=== PATIENT | male | born 1980 | race Caucasian/White ===

== ENCOUNTER 2019-08-13 08:34 | Emergency (ER) | payer BC, OTHER ==
[2019-08-13] MEDS ORDERED: SODIUM CHLORIDE 0.9% 1,000 ML IV STA (08:58)
[2019-08-13] MEDS ORDERED: IPRATROPIUM-ALBUTEROL 3 ML NEB INHALATION STA (08:58)
[2019-08-13] MEDS ORDERED: KETOROLAC 30 MG/ML 1 ML VIAL IVP STA (08:58)
--- NOTE | 2019-08-13 09:02 | ED ---
URI HPI - General Chief Complaint: Upper Respiratory Infection Stated Complaint: pneumonia Time Seen by Provider: 08/13/19 08:35 Source: patient Mode of arrival: ambulatory - History of Present Illness Initial Comments: The patient is a 38-year-old male with no past medical history of presents emergency Department with reported cough and low back pain. The patient went into [facility] yesterday for the same complaint. He describes an aching burning sensation which spans across his lumbar region. He denies any trauma. Denies any provocative factors. He took indomethacin at home for pain control which she has been prescribed for other reasons. Denies a history of low back pain. The pain, numbness or tingling into his lower extremities. Because his symptoms persisted he went into the emergency department. At time he had laboratory studies, a chest x-ray and a CT of his abdomen and pelvis performed. He was diagnosed with pneumonia. He does her Rocephin was discharged home. States he is placed on Ceftin however can potato picker his prescription because the pharmacy was closed. States that he was feeling worse overnight and was told to come back if his symptoms worsened. He denies any chest pain. Does admit to shortness of breath. No anterior abdominal pain. No changes in his bowel or bladder habits. There are no other alleviating, precip itating or modifying factors - Related Data Previous Rx's Medication Instructions Recorded HYDROcodone/APAP 7.5-325MG [[place] 1 each PO Q4H PRN #60 tab 06/09/16 7.5] predniSONE [Deltasone] 20 mg PO BID #10 tab 08/13/19 Allergies Allergy/AdvReac Type Severity Reaction Status Date / Time No Known Allergies Allergy Verified 08/13/19 08:39 Review of Systems ROS Statement: Those systems with pertinent positive or pertinent negative responses have been documented in the HPI. ROS Other: All systems not noted in ROS Statement are negative. Past Medical History Additional Past Medical History / Comment(s): umbilical hernia History of Any Multi-Drug Resistant Organisms: None Reported Past Surgical History: Orthopedic Surgery Additional Past Surgical History / Comment(s): lt ankle cyst removed Past Anesthesia/Blood Transfusion Reactions: No Reported Reaction Past Psychological History: No Psychological Hx Reported Smoking Status: Current some day smoker Past Alcohol Use History: Occasional Past Drug Use History: Marijuana - Past Family History Mother Family Medical History: No Reported History Father History Unknown: Yes Course Vital Signs 08/13/19 08/13/19 08/13/19 08:35 09:11 09:13 Temperature 98.2 F Pulse Rate 93 83 Respiratory 18 Rate Blood Pressure 136/95 O2 Sat by Pulse 94 L 92 L Oximetry 08/13/19 08/13/19 08/13/19 09:20 09:22 09:32 Temperature Pulse Rate 79 87 Respiratory 18 18 Rate Blood Pressure 101/78 O2 Sat by Pulse 96 Oximetry 08/13/19 08/13/19 08/13/19 09:40 10:00 10:20 Temperature Pulse Rate 80 79 73 Respiratory 16 16 16 Rate Blood Pressure 139/86 O2 Sat by Pulse 92 L 96 96 Oximetry 08/13/19 10:54 Temperature 98.9 F Pulse Rate 72 Respiratory 16 Rate Blood Pressure 128/75 O2 Sat by Pulse 98 Oximetry Medical Decision Making - Medical Decision Making Upon arrival the patient was placed into room 2. A thorough history and physical exam was performed. I did obtain the records from [facility]. I did recommend repeating the patient's laboratory studies. CBC is unremarkable. D-dimer is 0.25. Sodium mildly low at 135. Urinalysis shows small blood, 8 red blood cells and rare mucous. I did review the patient's CT that was performed yesterday which demonstrated no signs of nephrolithiasis. He does demonstrate a lobar pneumonia. I did recommend repeating a chest x-ray. It does demonstrate no active intrathoracic disease. I did provide the patient with 15 mg of Toradol and a liter bolus of normal saline. He is also given 125 mg of Solu-Medrol, 1 g of Rocephin and a DuoNeb breathing treatment. I reevaluated the patient and he feels comfortable at this time. He'll be discharged home. Instructed to take the Ceftin as directed and use the inhaler which was prescribed to him yesterday. I also added on a steroid pack. He is always a primary care physician in 2-4 days. Return to emergency for any new or worsening symptoms her patient was in agreement treatment plan discharge home in stable condition - Lab Data Result diagrams: 08/13/19 09:19 08/13/19 09:19 Lab Results 08/13/19 08/13/19 08/13/19 Range/Units 09:19 09:19 09:19 WBC 7.6 (3.8-10.6) k/uL RBC 4.97 (4.30-5.90) m/uL Hgb 15.4 (13.0-17.5) gm/dL Hct 45.4 (39.0-53.0) % MCV 91.5 (80.0-100.0) fL MCH 30.9 (25.0-35.0) pg MCHC 33.8 (31.0-37.0) g/dL RDW 12.5 (11.5-15.5) % Plt Count 189 (150-450) k/uL Neutrophils % (Manual) 67 % Band Neutrophils % 1 % Lymphocytes % (Manual) 21 % Monocytes % (Manual) 11 % Neutrophils # (Manual) 5.10 (1.3-7.7) k/uL Lymphocytes # (Manual) 1.60 (1.0-4.8) k/uL Monocytes # (Manual) 0.84 (0-1.0) k/uL Nucleated RBCs 0 (0-0) /100 WBC Manual Slide Review Performed D-Dimer 0.25 (<0.60) mg/L FEU Sodium 135 L (137-145) mmol/L Potassium 4.5 (3.5-5.1) mmol/L Chloride 103 (98-107) mmol/L Carbon Dioxide 22 (22-30) mmol/L Anion Gap 10 mmol/L BUN 16 (9-20) mg/dL Creatinine 0.99 (0.66-1.25) mg/dL Est GFR (CKD-EPI)AfAm >90 (>60 ml/min/1.73 sqM) Est GFR (CKD-EPI)NonAf >90 (>60 ml/min/1.73 sqM) Glucose 103 H (74-99) mg/dL Plasma Lactic Acid Samuel (0.7-2.0) mmol/L Calcium 9.0 (8.4-10.2) mg/dL Total Bilirubin 0.6 (0.2-1.3) mg/dL AST 30 (17-59) U/L ALT 29 (4-49) U/L Alkaline Phosphatase 41 (38-126) U/L Total Protein 7.4 (6.3-8.2) g/dL Albumin 4.2 (3.5-5.0) g/dL Urine Color Urine Appearance (Clear) Urine pH (5.0-8.0) Ur Specific [place] (1.001-1.035) Urine Protein (Negative) Urine Glucose (UA) (Negative) Urine Ketones (Negative) Urine Blood (Negative) Urine Nitrite (Negative) Urine Bilirubin (Negative) Urine Urobilinogen (<2.0) mg/dL Ur Leukocyte Esterase (Negative) Urine RBC (0-5) /hpf Urine Mucus (None) /hpf 08/13/19 08/13/19 Range/Units 09:19 09:19 WBC (3.8-10.6) k/uL RBC (4.30-5.90) m/uL Hgb (13.0-17.5) gm/dL Hct (39.0-53.0) % MCV (80.0-100.0) fL MCH (25.0-35.0) pg MCHC (31.0-37.0) g/dL RDW (11.5-15.5) % Plt Count (150-450) k/uL Neutrophils % (Manual) % Band Neutrophils % % Lymphocytes % (Manual) % Monocytes % (Manual) % Neutrophils # (Manual) (1.3-7.7) k/uL Lymphocytes # (Manual) (1.0-4.8) k/uL Monocytes # (Manual) (0-1.0) k/uL Nucleated RBCs (0-0) /100 WBC Manual Slide Review D-Dimer (<0.60) mg/L FEU Sodium (137-145) mmol/L Potassium (3.5-5.1) mmol/L Chloride (98-107) mmol/L Carbon Dioxide (22-30) mmol/L Anion Gap mmol/L BUN (9-20) mg/dL Creatinine (0.66-1.25) mg/dL Est GFR (CKD-EPI)AfAm (>60 ml/min/1.73 sqM) Est GFR (CKD-EPI)NonAf (>60 ml/min/1.73 sqM) Glucose (74-99) mg/dL Plasma Lactic Acid Samuel 0.8 (0.7-2.0) mmol/L Calcium (8.4-10.2) mg/dL Total Bilirubin (0.2-1.3) mg/dL AST (17-59) U/L ALT (4-49) U/L Alkaline Phosphatase (38-126) U/L Total Protein (6.3-8.2) g/dL Albumin (3.5-5.0) g/dL Urine Color Yellow Urine Appearance Clear (Clear) Urine pH 6.0 (5.0-8.0) Ur Specific [place] 1.023 (1.001-1.035) Urine Protein Negative (Negative) Urine Glucose (UA) Negative (Negative) Urine Ketones Negative (Negative) Urine Blood Small H (Negative) Urine Nitrite Negative (Negative) Urine Bilirubin Negative (Negative) Urine Urobilinogen <2.0 (<2.0) mg/dL Ur Leukocyte Esterase Negative (Negative) Urine RBC 8 H (0-5) /hpf Urine Mucus Rare H (None) /hpf - EKG Data EKG Comments: EKG shows a normal sinus rhythm with ventricular rate of 81. HI interval 128. QRS 86. QTC 425. No acute ST segment elevations or depressions concerning for ischemic changes Disposition Clinical Impression: Cough, Low back pain, Pneumonia Disposition: HOME SELF-CARE Condition: Stable Instructions (If sedation given, give patient instructions): Upper Respiratory Infection (ED) Additional Instructions: Please follow up with your primary care doctor in 2-4 days. Return to the emergency room for any new or worsening symptoms Prescriptions: predniSONE [Deltasone] 20 mg PO BID #10 tab Is patient prescribed a controlled substance at d/c from ED?: No Referrals: Colt Spicer MD [Primary Care Provider] - 1-2 days Time of Disposition: 10:44
[2019-08-13 09:36] LABS: ALT 29 U/L (4-49); AST 30 U/L (17-59); African American GFR (CKD) >90 (>60 ml/min/1.73 sqM); Albumin 4.2 g/dL (3.5-5.0); Alkaline Phosphatase 41 U/L (38-126); Anion Gap 10 mmol/L; Blood Urea Nitrogen 16 mg/dL (9-20); Carbon Dioxide 22 mmol/L (22-30); Chloride 103 mmol/L (98-107); Glucose 103 mg/dL (74-99); HCT 45.4 % (39.0-53.0); HGB 15.4 gm/dL (13.0-17.5); MCH 30.9 pg (25.0-35.0); MCHC 33.8 g/dL (31.0-37.0); MCV 91.5 fL (80.0-100.0); Mean Platelet Volume 7.6; Non-African American GFR(CKD) >90 (>60 ml/min/1.73 sqM); Platelet Count 189 k/uL (150-450); Potassium 4.5 mmol/L (3.5-5.1); RBC 4.97 m/uL (4.30-5.90); RDW 12.5 % (11.5-15.5); Sodium 135 mmol/L (137-145); Total Bilirubin 0.6 mg/dL (0.2-1.3); Total Protein 7.4 g/dL (6.3-8.2); WBC 7.6 k/uL (3.8-10.6)
[2019-08-13 09:41] LABS: Appearance,Urine Clear (Clear); Bilirubin,Urine Negative (Negative); Blood,Urine Small (Negative); Color,Urine Yellow; Glucose,Urine (UA) Negative (Negative); Ketones,Urine Negative (Negative); Leukocyte Esterase,Urine Negative (Negative); Mucus,Urine Rare /hpf; Nitrite,Urine Negative (Negative); Protein,Urine Negative (Negative); RBC,Urine 8 /hpf (0-5); Specific Gravity,Urine 1.023 (1.001-1.035); Urobilinogen,Urine <2.0 mg/dL (<2.0)
[2019-08-13 09:48] LABS: Band Neutrophils % 1 %; Monocytes # (M) 0.84 k/uL (0-1.0); Neutrophils % (M) 67 %; Nucleated Red Blood Cells 0 /100 WBC (0-0); Total Cells Counted 100
--- NOTE | 2019-08-13 10:13 | XR ---
EXAMINATION TYPE: XR chest 2V DATE OF EXAM: 08/13/2019 HISTORY: cough. REFERENCE: NONE. FINDINGS: There is apparent elevation right hemidiaphragm. The lungs are clear. Pleural spaces are clear. The heart is not enlarged. IMPRESSION: NO ACTIVE INTRATHORACIC DISEASE.
[2019-08-13 10:27] VITALS: RESP 16
[2019-08-13] MEDS ORDERED: cefTRIAXone IN SWFI 1,000 MG/10 ML SYRINGE IVP STA (10:40)
[2019-08-13] MEDS ORDERED: methylPREDNISolone SOD SUCCI 125 MG/2 ML VIAL IV STA (10:40)
[2019-08-13 10:54] VITALS: BP 128/75; PULSE 72; TEMP 98.9
== END 2019-08-13 10:55 | disposition home or self-care (01) ==
LOC: EC 08:34
DX: J18.9 Pneumonia, unspecified organism (principal); M54.5 Low back pain; F17.200 Nicotine dependence, unspecified, uncomplicated
CPT/HCPCS: 36415; 94640; 93005; 85379; 80053; 83605; 85025; 81001; 71046; 99284; 96374; 96375 ×2; 96361; J2930; J0696; J1885

== ENCOUNTER 2019-08-17 10:28 | Observation (INO) | payer OTHER ==
[2019-08-17] MEDS ORDERED: methylPREDNISolone SOD SUCCI 125 MG/2 ML VIAL IV STA (11:03)
[2019-08-17] MEDS ORDERED: IPRATROPIUM-ALBUTEROL 3 ML NEB INHALATION STA (11:03)
--- NOTE | 2019-08-17 11:25 | XR ---
EXAMINATION TYPE: XR chest 2V DATE OF EXAM: 08/17/2019 COMPARISON: 08/13/2019 HISTORY: Cough TECHNIQUE: Frontal and lateral views of the chest are obtained. FINDINGS: Hypoventilatory lungs exaggerate the pulmonary vasculature. There is no focal air space [place], pleural effusion, or pneumothorax seen. Similar slight right hemidiaphragm elevation. The cardi ac silhouette size is within normal limits. The osseous structures are intact. IMPRESSION: No acute cardiopulmonary process.
[2019-08-17 11:28] LABS: Basophils # (A) 0.1 k/uL (0-0.2); Basophils % (A) 1 %; Eosinophils % (A) 0 %; HGB 15.8 gm/dL (13.0-17.5); Lymphocytes # (A) 1.4 k/uL (1.0-4.8); Lymphocytes % (A) 12 %; MCH 30.2 pg (25.0-35.0); MCHC 32.9 g/dL (31.0-37.0); MCV 91.9 fL (80.0-100.0); Mean Platelet Volume 7.7; Monocytes # (A) 0.4 k/uL (0-1.0); Monocytes % (A) 3 %; Neutrophils # (A) 9.7 k/uL (1.3-7.7); Neutrophils % (A) 83 %; Platelet Count 226 k/uL (150-450); RBC 5.22 m/uL (4.30-5.90); RDW 12.6 % (11.5-15.5); WBC 11.8 k/uL (3.8-10.6)
[2019-08-17 11:29] LABS: ALT 22 U/L (4-49); AST 22 U/L (17-59); African American GFR (CKD) >90 (>60 ml/min/1.73 sqM); Albumin 4.4 g/dL (3.5-5.0); Alkaline Phosphatase 44 U/L (38-126); Anion Gap 12 mmol/L; Blood Urea Nitrogen 16 mg/dL (9-20); Calcium 9.4 mg/dL (8.4-10.2); Carbon Dioxide 24 mmol/L (22-30); Chloride 103 mmol/L (98-107); Glucose 156 mg/dL (74-99); Magnesium 2.1 mg/dL (1.6-2.3); Non-African American GFR(CKD) >90 (>60 ml/min/1.73 sqM); Sodium 139 mmol/L (137-145); Total Bilirubin 0.5 mg/dL (0.2-1.3); Total Protein 7.6 g/dL (6.3-8.2)
[2019-08-17 11:33] LABS: Potassium 4.3 mmol/L (3.5-5.1)
--- NOTE | 2019-08-17 11:50 | ED ---
SOB HPI - General Chief Complaint: Shortness of Breath Stated Complaint: Pneumonia Time Seen by Provider: 08/17/19 10:39 Source: patient, RN notes reviewed Mode of arrival: ambulatory Limitations: no limitations - History of Present Illness Initial Comments: This a 38-year-old male presents emergency Department with chief complaint of fever cough congestion. Patient is seen at [facility] on Wednesday a CT which showed evidence of pneumonia. Patient was placed on antibiotics, breathing treatments. Symptoms worsen he was seen in this ER and had additional labs, imaging ordered. Patient was discharged with steroids. He states he's pe rsistently worsened recently increased shortness breath, wheezing. He states it's on alleviated with his breathing treatments he does admit that he is a daily smoker history of asthma. Patient denies any current chest pain, nausea, vomiting, diarrhea constipation no sick contacts. - Related Data Home Medications Medication Instructions Recorded Confirmed Albuterol Nebulized [Ventolin 2.5 mg INHALATION RT-Q6H PRN 08/17/19 08/17/19 Nebulized] Albuterol Sulfate [Proair Hfa] 2 puff INHALATION RT-Q6H PRN 08/17/19 08/17/19 Cefuroxime Axetil [Ceftin] 500 mg PO BID 08/17/19 08/17/19 Ibuprofen [Motrin] 600 mg PO TID PRN 08/17/19 08/17/19 Previous Rx's Medication Instructions Recorded predniSONE [Deltasone] 20 mg PO BID #10 tab 08/13/19 Allergies Allergy/AdvReac Type Severity Reaction Status Date / Time No Known Allergies Allergy Verified 08/17/19 11:20 Review of Systems ROS Statement: Those systems with pertinent positive or pertinent negative responses have been documented in the HPI. ROS Other: All systems not noted in ROS Statement are negative. Past Medical History Past Medical History: Pneumonia Additional Past Medical History / Comment(s): umbilical hernia History of Any Multi-Drug Resistant Organisms: None Reported Past Surgical History: Orthopedic Surgery Additional Past Surgical History / Comment(s): lt ankle cyst removed Past Anesthesia/Blood Transfusion Reactions: No Reported Reaction Past Psychological History: No Psychological Hx Reported Smoking Status: Current some day smoker Past Alcohol Use History: Occasional Past Drug Use History: Marijuana - Past Family History Mother Family Medical History: No Reported History Father History Unknown: Yes General Exam Limitations: no limitations General appearance: alert, in no apparent distress Head exam: Present: atraumatic, normocephalic, normal inspection Eye exam: Present: normal appearance, PERRL, EOMI. Absent: scleral icterus, conjunctival injection, periorbital swelling ENT exam: Present: normal exam, normal oropharynx, mucous membranes moist Neck exam: Present: normal inspection, full ROM. Absent: tenderness, meningismus, lymphadenopathy Respiratory exam: Present: wheezes. Absent: normal lung sounds bilaterally, respiratory distress, rales, rhonchi, stridor Cardiovascular Exam: Present: regular rate, normal rhythm, normal heart sounds. Absent: systolic murmur, diastolic murmur, rubs, gallop, clicks GI/Abdominal exam: Present: soft, normal bowel sounds. Absent: distended, tenderness, guarding, rebound, rigid Course Vital Signs 08/17/19 08/17/19 08/17/19 10:34 11:21 11:36 Temperature 97.4 F L Pulse Rate 105 H 93 90 Respiratory 18 16 16 Rate Blood Pressure 128/81 O2 Sat by Pulse 97 Oximetry 08/17/19 12:53 Temperature Pulse Rate 77 Respiratory 18 Rate Blood Pressure 140/90 O2 Sat by Pulse 97 Oximetry Medical Decision Making - Lab Data Result diagrams: 08/17/19 11:15 08/17/19 11:15 Lab Results 08/17/19 08/17/19 08/17/19 Range/Units 11:15 11:15 11:15 WBC 11.8 H (3.8-10.6) k/uL RBC 5.22 (4.30-5.90) m/uL Hgb 15.8 (13.0-17.5) gm/dL Hct 48.0 (39.0-53.0) % MCV 91.9 (80.0-100.0) fL MCH 30.2 (25.0-35.0) pg MCHC 32.9 (31.0-37.0) g/dL RDW 12.6 (11.5-15.5) % Plt Count 226 (150-450) k/uL Neutrophils % 83 % Lymphocytes % 12 % Monocytes % 3 % Eosinophils % 0 % Basophils % 1 % Neutrophils # 9.7 H (1.3-7.7) k/uL Lymphocytes # 1.4 (1.0-4.8) k/uL Monocytes # 0.4 (0-1.0) k/uL Eosinophils # 0.0 (0-0.7) k/uL Basophils # 0.1 (0-0.2) k/uL Sodium 139 (137-145) mmol/L Potassium 4.3 (3.5-5.1) mmol/L Chloride 103 (98-107) mmol/L Carbon Dioxide 24 (22-30) mmol/L Anion Gap 12 mmol/L BUN 16 (9-20) mg/dL Creatinine 0.79 (0.66-1.25) mg/dL Est GFR (CKD-EPI)AfAm >90 (>60 ml/min/1.73 sqM) Est GFR (CKD-EPI)NonAf >90 (>60 ml/min/1.73 sqM) Glucose 156 H (74-99) mg/dL Plasma Lactic Acid Samuel 2.6 H* (0.7-2.0) mmol/L Calcium 9.4 (8.4-10.2) mg/dL Magnesium 2.1 (1.6-2.3) mg/dL Total Bilirubin 0.5 (0.2-1.3) mg/dL AST 22 (17-59) U/L ALT 22 (4-49) U/L Alkaline Phosphatase 44 (38-126) U/L NT-Pro-B Natriuret Pep pg/mL Total Protein 7.6 (6.3-8.2) g/dL Albumin 4.4 (3.5-5.0) g/dL 08/17/19 Range/Units 11:15 WBC (3.8-10.6) k/uL RBC (4.30-5.90) m/uL Hgb (13.0-17.5) gm/dL Hct (39.0-53.0) % MCV (80.0-100.0) fL MCH (25.0-35.0) pg MCHC (31.0-37.0) g/dL RDW (11.5-15.5) % Plt Count (150-450) k/uL Neutrophils % % Lymphocytes % % Monocytes % % Eosinophils % % Basophils % % Neutrophils # (1.3-7.7) k/uL Lymphocytes # (1.0-4.8) k/uL Monocytes # (0-1.0) k/uL Eosinophils # (0-0.7) k/uL Basophils # (0-0.2) k/uL Sodium (137-145) mmol/L Potassium (3.5-5.1) mmol/L Chloride (98-107) mmol/L Carbon Dioxide (22-30) mmol/L Anion Gap mmol/L BUN (9-20) mg/dL Creatinine (0.66-1.25) mg/dL Est GFR (CKD-EPI)AfAm (>60 ml/min/1.73 sqM) Est GFR (CKD-EPI)NonAf (>60 ml/min/1.73 sqM) Glucose (74-99) mg/dL Plasma Lactic Acid Samuel (0.7-2.0) mmol/L Calcium (8.4-10.2) mg/dL Magnesium (1.6-2.3) mg/dL Total Bilirubin (0.2-1.3) mg/dL AST (17-59) U/L ALT (4-49) U/L Alkaline Phosphatase (38-126) U/L NT-Pro-B Natriuret Pep 23 pg/mL Total Protein (6.3-8.2) g/dL Albumin (3.5-5.0) g/dL Disposition Clinical Impression: Asthma exacerbation, Pneumonia Disposition: ADMITTED IP TO THIS HOSP Condition: Fair Referrals: Colt Spicer MD [Primary Care Provider] - 1-2 days
[2019-08-17] MEDS ORDERED: AZITHROMYCIN 500 MG in SODIUM CHLORIDE 0.9% 250 ML IVPB STA (12:56)
[2019-08-17] MEDS ORDERED: PNEUMONIA PROTOCOL UTILIZED 1 EACH MISC PO PRN (12:56)
[2019-08-17] MEDS ORDERED: NICOTINE 21MG/24HR PATCH TRANSDERM STA (13:32)
[2019-08-17] MEDS ORDERED: INFLUENZA VACCINE (6 MOS+) 60 MCG/0.5 ML SYRINGE IM ONE (13:52)
[2019-08-17] MEDS ORDERED: IPRATROPIUM-ALBUTEROL 3 ML NEB INHALATION SCH (16:00)
[2019-08-17] MEDS ORDERED: IPRATROPIUM-ALBUTEROL 3 ML NEB INHALATION PRN (16:03)
[2019-08-17] MEDS: methylPREDNISolone SOD SUCCI 40 MG/ML 1 ML VIAL IV SCH (17:07)
[2019-08-17] MEDS: BUDESONIDE 0.5 MG/2 ML NEBU INHALATION SCH (20:26)
[2019-08-17] MEDS: IPRATROPIUM-ALBUTEROL 3 ML NEB INHALATION SCH (20:26)
--- NOTE | 2019-08-17 20:49 | HP ---
HISTORY AND PHYSICAL CHIEF COMPLAINT: Difficulty breathing. HISTORY OF PRESENT ILLNESS: This is the first admission for this 38-year-old white male. 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 He has had a little bit of difficulty with asthma, for which he uses an albuterol MDI occasionally. At times his work is wu. He has been fairly short of breath and coughing quite a bit with a low-grade fever and chills over the last several days. He went to [facility], where they diagnosed him as having pneumonia. He apparently had a CT. Chest x-ray here is normal. He came to the emergency room with difficulty breathing and wheezing and was admitted for control of his bronchospasm. He is other otherwise healthy. REVIEW OF SYSTEMS: He has had no headaches, neurologic problems, difficulty with the vision or the hearing, chest pain, hemoptysis, purulent sputum production, heart disease, hypertension, murmurs, rheumatic fever, chest pain, abdominal pain, nausea, vomiting, melena, hematochezia, colitis, diverticulosis, diverticulitis, hemorrhoids, jaundice, hepatitis, cirrhosis, renal failure, dysuria, nocturia, incontinence, etc. He has been told that he has blood in the urine. He had a relative of bladder cancer. He has not had diabetes. Past medical history, family history, and personal and social histories reveal that he takes Motrin 600 mg for his back and uses an MDI. He has had a vasectomy and no other surgery. He is NOT ALLERGIC TO ANY MEDICATION. He does smoke about 2 packs a day and has done so since he was 16 years old. PHYSICAL EXAMINATION: Temperature 97.4, blood pressure 128/81 with a pulse of 77, respirations 18. In general he appeared to be well developed, well nourished, in no acute distress. Skin color is normal. Skin is warm and dry. Lymph nodes are not enlarged. Head, ears, eyes, nose, mouth and throat are normal. Neck veins are not distended. Thyroid is not enlarged. Chest demonstrated some inspiratory and expiratory wheezing with occasional rhonchi. Cardiac exam demonstrated sinus rhythm and no murmurs or extra sounds. Abdomen is soft, nontender. Extremities are normal. Neurologically he is intact. IMPRESSION: 1. Asthmatic bronchitis. 2. Possible pneumonia. 3. History of testing positive for influenza. PLAN: 1. Bed rest. 2. IV fluids. 3. Antibiotics. 4. Updrafts. 5. IV and inhaled steroids. Probably home in one day. MMODL / IJN: [id number] /
[2019-08-17] MEDS: AMOXIC-POT CLAV 875-125MG 1 EACH TAB PO SCH (21:24)
[2019-08-17] MEDS: IBUPROFEN 600 MG TAB PO PRN (21:25)
--- NOTE | 2019-08-17 22:40 | XR ---
EXAMINATION TYPE: XR KUB DATE OF EXAM: 08/17/2019 COMPARISON: NONE HISTORY: Hematuria TECHNIQUE: 2 views supine FINDINGS: There is no sign of intestinal obstruction or pneumoperitoneum. Fecal pattern is normal. Vibha ng bases are clear. There are no pathologic calcifications. IMPRESSION: Nonacute abdomen.
[2019-08-18] MEDS: IPRATROPIUM-ALBUTEROL 3 ML NEB INHALATION SCH ×7 (00:04→23:31)
[2019-08-18] MEDS: methylPREDNISolone SOD SUCCI 40 MG/ML 1 ML VIAL IV SCH ×3 (00:13→15:43)
[2019-08-18] MEDS: AMOXIC-POT CLAV 875-125MG 1 EACH TAB PO SCH ×2 (06:49→21:46)
[2019-08-18 06:55] LABS: Appearance,Urine Clear (Clear); Bilirubin,Urine Negative (Negative); Blood,Urine Negative (Negative); Color,Urine Light Yellow; Glucose,Urine (UA) 3+ (Negative); Ketones,Urine Negative (Negative); Leukocyte Esterase,Urine Negative (Negative); Nitrite,Urine Negative (Negative); Protein,Urine Negative (Negative); Specific Gravity,Urine 1.008 (1.001-1.035); Urobilinogen,Urine <2.0 mg/dL (<2.0)
--- NOTE | 2019-08-18 07:59 | XR ---
EXAMINATION TYPE: XR chest 2V DATE OF EXAM: 08/18/2019 COMPARISON: 08/17/2019 HISTORY: Follow-up for pneumonia TECHNIQUE: Frontal and lateral views of the chest are obtained. FINDINGS: Hypoventilatory lungs. Crowding of the pulmonary vasculature and accentuating interstitium. There is no focal air space opacity, pleural effusion, or pneumothorax seen. The cardiac silhouett e size is within normal limits. The osseous structures are intact. IMPRESSION: Accentuated interstitium is likely related to hypoventilatory status. Alternatively atyp ical pneumonia is possible in the appropriate clinical setting.
[2019-08-18] MEDS: BUDESONIDE 0.5 MG/2 ML NEBU INHALATION SCH ×2 (08:31→19:21)
[2019-08-18] MEDS: IBUPROFEN 600 MG TAB PO PRN ×2 (10:32→20:52)
[2019-08-18] MEDS: NICOTINE 21MG/24HR PATCH TRANSDERM SCH (10:39)
--- NOTE | 2019-08-18 14:58 | PN ---
PROGRESS NOTE CHIEF COMPLAINT: Status asthmaticus. HISTORY OF PRESENT ILLNESS: This gentleman is still quite tight and quite wheezy. He has had no fever, chills, cough, sputum duction, etc. PHYSICAL EXAMINATION: He still has inspiratory and expiratory wheezing with a slightly increased expiratory time. Cardiac exam is normal. Abdomen is soft, nontender. IMPRESSION: 1. Status asthmaticus. 2. Bronchitis. 3. Bronchial pneumonia. PLAN: Continue with current treatment until his bronchospasm is broken. MMODL / IJN: [id number] /
[2019-08-19] MEDS: methylPREDNISolone SOD SUCCI 40 MG/ML 1 ML VIAL IV SCH ×2 (00:06→08:13)
[2019-08-19] MEDS: IPRATROPIUM-ALBUTEROL 3 ML NEB INHALATION SCH ×2 (05:16→08:49)
[2019-08-19 05:55] VITALS: BP 138/75; RESP 20; TEMP 98.1
[2019-08-19] MEDS ORDERED: INFLUENZA VACCINE (6 MOS+) 60 MCG/0.5 ML SYRINGE IM ONE (08:12)
[2019-08-19] MEDS: NICOTINE 21MG/24HR PATCH TRANSDERM SCH (08:13)
[2019-08-19] MEDS: AMOXIC-POT CLAV 875-125MG 1 EACH TAB PO SCH (08:13)
[2019-08-19] MEDS: BUDESONIDE 0.5 MG/2 ML NEBU INHALATION SCH (08:49)
[2019-08-19 09:08] VITALS: PULSE 94
--- NOTE | 2019-08-20 06:35 | DS ---
DISCHARGE SUMMARY CHIEF COMPLAINT: Fever, chills, difficulty breathing. HISTORY OF PRESENT ILLNESS AND PHYSICAL EXAMINATION: Details of this man's history and physical can be found in the initial workup. LABORATORY STUDIES: While he was in the hospital, he had laboratory studies, details of which can be found laboratory section of his chart. COURSE IN HOSPITAL: After admission, he was placed on bedrest, started on intravenous fluids, antibiotics and IV and inhaled steroids. He remained quite wheezy, congested and tight for several days, but then started to improve and he was doing well enough on the . It was felt that he could go home. He will go home on a Medrol Dosepak and usual medications that he has at home. He will follow up in the office in several days. FINAL DIAGNOSES: 1. Bilateral bronchopneumonia. 2. Status asthmaticus. OPERATIONS: None. CONSULTATION: None. He is improved. MMODL / CARO: [id number] /
[2019-08-20] MEDS ORDERED: methylPREDNISolone 4 MG TAB TAPER PO SCH (09:00)
== END 2019-08-19 11:56 | disposition home or self-care (01) ==
LOC: EC 10:28 → 6NMEDSUR 13:28 → INTOOBSV 13:28 → UNDODISIN 08-19 11:56
PROVIDERS: ADMIT Family Medicine; ATTEND Family Medicine
DX: J18.0 Bronchopneumonia, unspecified organism (principal); J45.902 Unspecified asthma with status asthmaticus; F17.210 Nicotine dependence, cigarettes, uncomplicated; Z98.52 Vasectomy status; Z87.01 Personal history of pneumonia (recurrent); Z79.899 Other long term (current) drug therapy; Z87.09 Personal history of other diseases of the respiratory system
CPT/HCPCS: 96376 ×3; 96366; 96367; 96365; 96375; 99285; 36415; 94640 ×5; 94760; 83880; 80053; 83605; 83735; 85025; 81003; 87040; 71046 ×2; 74018; G0378 ×3; S4990 ×3; J2920 ×3; J2930; J0456; J0696

== ENCOUNTER 2019-12-12 18:00 | Emergency (ER) | payer OTHER ==
[2019-12-12 18:21] VITALS: BP 149/84; PULSE 94; RESP 16; TEMP 98
--- NOTE | 2019-12-12 19:02 | XR ---
EXAMINATION TYPE: XR humerus RT DATE OF EXAM: 12/12/2019 COMPARISON: NONE HISTORY: Lifting injury. Pain TECHNIQUE: 2 views shoulder joint and elbow joint appear intact. I see no fracture nor dislocation. There are no pathol ogic calcifications. IMPRESSION: Negative right humerus exam.
--- NOTE | 2019-12-12 19:06 | ED ---
Upper Extremity HPI - General Chief Complaint: Extremity Injury, Upper Stated Complaint: rt arm pain Time Seen by Provider: 12/12/19 18:25 Source: patient Mode of arrival: ambulatory Limitations: no limitations - History of Present Illness Initial Comments: Patient is a 38-year-old male presenting to the emergency department with a chief complaint of right bicep pain. Patient states about 2 weeks ago he developed sudden onset of right bicep pain after he attempted to order picker largely. Patient states now he has a constant take and has difficulty whenever he is flexing the biceps. Patient denies any significant bicep deformities. Denies any regions of ecchymosis, erythema or swelling. Denies any bony deformity in the shoulder. States his pain is able to be controlled with Tylenol Motrin. - Related Data Home Medications Medication Instructions Recorded Confirmed Albuterol Sulfate [Proair Hfa] 2 puff INHALATION RT-Q6H PRN 08/17/19 08/17/19 Ibuprofen [Motrin] 600 mg PO TID PRN 08/17/19 08/17/19 Previous Rx's Medication Instructions Recorded Amoxic-Pot Clav 875-125Mg 1 each PO Q12HR #10 tab 08/19/19 [Augmentin 875-125] Ipratropium-Albuterol Nebulize 3 ml INHALATION RT-Q4H #120 ml 08/19/19 [Duoneb 0.5 mg-3 mg/3 ml Soln] Nicotine 21Mg/24Hr Patch [Habitrol] 1 patch TRANSDERM DAILY #30 patch 08/19/19 methylPREDNISolone Dose Pack 24 mg PO DAILY 7 Days #1 dosepack 08/19/19 [Medrol Dose Pack] Allergies Allergy/AdvReac Type Severity Reaction Status Date / Time No Known Allergies Allergy Verified 12/12/19 18:21 Review of Systems ROS Statement: Those systems with pertinent positive or pertinent negative responses have been documented in the HPI. ROS Other: All systems not noted in ROS Statement are negative. Past Medical History Past Medical History: Asthma, Pneumonia Additional Past Medical History / Comment(s): Bronchitis yearly, told he had a mild VT per EKG, chronic mid back pain. History of Any Multi-Drug Resistant Organisms: None Reported Past Surgical History: Hernia Repair, Orthopedic Surgery Additional Past Surgical History / Comment(s): lt ankle cyst removed, umbilical hernia repair. Past Anesthesia/Blood Transfusion Reactions: No Reported Reaction Past Psychological History: No Psychological Hx Reported Smoking Status: Current every day smoker Past Alcohol Use History: Occasional Past Drug Use History: Marijuana - Past Family History Mother Additional Family Medical History / Comment(s): Mother had lung problems. Father History Unknown: Yes General Exam Limitations: no limitations General appearance: alert, in no apparent distress Head exam: Present: atraumatic, normocephalic, normal inspection Eye exam: Present: normal appearance, PERRL, EOMI Pupils: Present: normal accommodation ENT exam: Present: normal exam, normal oropharynx, mucous membranes moist Neck exam: Present: normal inspection, full ROM Respiratory exam: Present: normal lung sounds bilaterally. Absent: respiratory distress, wheezes Cardiovascular Exam: Present: regular rate, normal rhythm, normal heart sounds GI/Abdominal exam: Present: soft. Absent: distended, guarding Extremities exam: Present: normal inspection (No signs of swelling at the right bicep that would indicate a bicep injury./Tear), full ROM, tenderness (Very minimal tenderness along the midshaft of the humerus. No pain or discomfort in the shoulder.), normal capillary refill, other (+2 ulnar and radial pulses bilaterally.) Back exam: Present: normal inspection, full ROM Neurological exam: Present: alert, oriented X3 Psychiatric exam: Present: normal affect, normal mood Skin exam: Present: warm, dry, intact, normal color Course Vital Signs 12/12/19 18:18 Temperature 98.0 F Pulse Rate 94 Respiratory 16 Rate Blood Pressure 149/84 O2 Sat by Pulse 98 Oximetry Medical Decision Making - Medical Decision Making Patient is a 38-year-old male presenting to emergency Department with a chief complaint of bicep pain. On exam no signs of the biceps are noted. No bulging of the muscle. No significant amount of pain. Patient has been able to control with Tylenol Motrin alone. X-ray of the right humerus reveals no acute processes. Patient advised to continue alternating between Tylenol and Motrin for pain control. He was advised to apply ice compress and keeps arm elevated. Return parameters were thoroughly discussed the patient is understanding and agreeable. Case discussed with physician. Disposition Clinical Impression: Strain of right biceps Disposition: HOME SELF-CARE Condition: Stable Instructions (If sedation given, give patient instructions): Tendinitis (ED) Additional Instructions: Alternate between Tylenol and Motrin for pain control. Follow with the primary care. Return to emergency department if symptoms worsen. Is patient prescribed a controlled substance at d/c from ED?: No Referrals: Colt Spicer MD [Primary Care Provider] - 1-2 days Juan Lovelace PAC [[employer] [facility]] - 1-2 days Time of Disposition: 19:17
== END 2019-12-12 19:30 | disposition home or self-care (01) ==
LOC: EC 18:00
DX: S46.211A Strain of muscle, fascia and tendon of other parts of biceps, right arm, initial encounter (principal); J45.909 Unspecified asthma, uncomplicated; F17.200 Nicotine dependence, unspecified, uncomplicated; X58.XXXA Exposure to other specified factors, initial encounter
CPT/HCPCS: 99283

== ENCOUNTER → 2020-01-15 | Outpatient (CLI) | payer OTHER | END | disposition home or self-care (01) | LOC: LABWHC1 13:46 | PROVIDERS: ATTEND Family Medicine | DX: Z20.828 Contact with and (suspected) exposure to other viral communicable diseases (principal) ==

== ENCOUNTER 2020-02-18 13:19 | Emergency (ER) | payer OTHER ==
[2020-02-18 13:28] VITALS: BP 117/74; PULSE 95; RESP 18; TEMP 97
[2020-02-18] MEDS ORDERED: SODIUM CHLORIDE 0.9% 1,000 ML IV STA (13:37)
[2020-02-18] MEDS ORDERED: KETOROLAC 15 MG/ML 1 ML VIAL IVP STA (13:37)
[2020-02-18 14:03] LABS: Basophils # (A) 0.1 k/uL (0-0.2); Basophils % (A) 1 %; Eosinophils # (A) 0.4 k/uL (0-0.7); Eosinophils % (A) 4 %; HCT 44.2 % (39.0-53.0); HGB 14.7 gm/dL (13.0-17.5); Lymphocytes # (A) 2.5 k/uL (1.0-4.8); Lymphocytes % (A) 30 %; MCH 29.7 pg (25.0-35.0); MCHC 33.2 g/dL (31.0-37.0); MCV 89.4 fL (80.0-100.0); Mean Platelet Volume 7.4; Monocytes # (A) 0.4 k/uL (0-1.0); Monocytes % (A) 5 %; Neutrophils # (A) 4.8 k/uL (1.3-7.7); Neutrophils % (A) 57 %; Platelet Count 228 k/uL (150-450); RBC 4.94 m/uL (4.30-5.90); RDW 12.6 % (11.5-15.5); WBC 8.4 k/uL (3.8-10.6)
--- NOTE | 2020-02-18 14:03 | ED ---
Abdominal Pain HPI - General Chief Complaint: Abdominal Pain Stated Complaint: Abd pain Time Seen by Provider: 02/18/20 13:31 Source: patient Mode of arrival: ambulatory Limitations: no limitations - History of Present Illness Initial Comments: Patient is a 39-year-old male presenting to the emergency Department with complaints of right upper quadrant pain that has been increasing over the past month. He states that pain has been intermittent but over the last 2 days has become more severe. Patient describes that as his upper right quadrant with s ome radiation into his back. Patient denies any nausea or vomiting. He states it seems to get worse after he eats breakfast. He normally has eggs and sausage for breakfast. He admits to history of umbilical hernia repair, no other abdominal surgeries. He denies having fever, chills, dysuria, diarrhea. He denies any chest pain or shortness of breath. He has no further complaints at this time. Upon arrival to the ER, his vital signs are stable. - Related Data Home Medications Medication Instructions Recorded Confirmed Albuterol Sulfate [Proair Hfa] 2 puff INHALATION RT-Q6H PRN 08/17/19 08/17/19 Ibuprofen [Motrin] 600 mg PO TID PRN 08/17/19 08/17/19 Previous Rx's Medication Instructions Recorded Amoxic-Pot Clav 875-125Mg 1 each PO Q12HR #10 tab 08/19/19 [Augmentin 875-125] Ipratropium-Albuterol Nebulize 3 ml INHALATION RT-Q4H #120 ml 08/19/19 [Duoneb 0.5 mg-3 mg/3 ml Soln] Nicotine 21Mg/24Hr Patch [Habitrol] 1 patch TRANSDERM DAILY #30 patch 08/19/19 methylPREDNISolone Dose Pack 24 mg PO DAILY 7 Days #1 dosepack 08/19/19 [Medrol Dose Pack] Allergies Allergy/AdvReac Type Severity Reaction Status Date / Time No Known Allergies Allergy Verified 02/18/20 13:25 Review of Systems ROS Statement: Those systems with pertinent positive or pertinent negative responses have been documented in the HPI. ROS Other: All systems not noted in ROS Statement are negative. Past Medical History Past Medical History: Asthma, Pneumonia Additional Past Medical History / Comment(s): Bronchitis yearly, told he had a mild TN per EKG, chronic mid back pain. History of Any Multi-Drug Resistant Organisms: None Reported Past Surgical History: Hernia Repair, Orthopedic Surgery Additional Past Surgical History / Comment(s): lt ankle cyst removed, umbilical hernia repair. Past Anesthesia/Blood Transfusion Reactions: No Reported Reaction Past Psychological History: No Psychological Hx Reported Smoking Status: Current every day smoker Past Alcohol Use History: Occasional Past Drug Use History: Marijuana - Past Family History Mother Family Medical History: No Reported History Additional Family Medical History / Comment(s): Mother had lung problems. Father History Unknown: Yes General Exam - General Exam Comments Initial Comments: GENERAL: Patient is well-developed and well-nourished. Patient is obese, nontoxic and in no acute distress. HEAD: Atraumatic, normocephalic. EYES: Pupils equal round and reactive to light, extraocular movements intact, sclera anicteric, conjunctiva are normal. Eyelids were unremarkable. ENT: TMs normal, nares patent, oropharynx clear without exudates. Moist mucous membranes. NECK: Normal range of motion, supple without lymphadenopathy or JVD. LUNGS: Unlabored respirations. Breath sounds clear to auscultation bilaterally and equal. No wheezes rales or rhonchi. HEART: Regular rate and rhythm without murmurs, rubs or gallops. ABDOMEN: Right upper quadrant pain with palpation, positive Mir sign. Soft, normoactive bowel sounds. No masses appreciated. : Deferred MUSCULOSKELETAL: Normal extremities with adequate strength and normal range of motion, no pitting or edema. No clubbing or cyanosis. NEUROLOGICAL: Patient is alert and oriented x 3. Motor and sensory are also intact. Cranial nerves II through XII grossly intact. Symmetrical smile. Normal speech, normal gait. PSYCH: Normal mood, normal affect. SKIN: Warm, Dry, normal turgor, no rashes or lesions noted. Limitations: no limitations Course Vital Signs 02/18/20 13:25 Temperature 97 F L Pulse Rate 95 Respiratory 18 Rate Blood Pressure 117/74 O2 Sat by Pulse 98 Oximetry Medical Decision Making - Medical Decision Making Patient is a 39-year-old male here with right upper quadrant pain has been increasing over the past month, more severe the past 2 days. Vitals are stable. Patient has pain with palpation of right upper quadrant, positive Mir sign. Labs show a normal white count, kidney function is stable, lactic acid is normal, lipase is 67, liver functions are normal. Urine shows small amount of blood, no bacteria. Ultrasound reveals a fatty liver, syncope wall on the gallbladder but no signs of gallstones or dilated ducts. She was given fluids, pain control, he states improvement in his pain. I discussed these findings with the patient. This is most likely biliary colic. Patient did have hernia repair by Dr. Salgado in the past, I did give her referral to Dr. Salgado for follow-up. He is in agreement with this plan of care. He is stable for discharge. Return parameters were discussed with the patient he verbalizes understanding. Case discussed with Dr. Matamoros. - Lab Data Result diagrams: 02/18/20 13:51 02/18/20 13:51 Lab Results 02/18/20 02/18/20 02/18/20 Range/Units 13:51 13:51 13:51 WBC 8.4 (3.8-10.6) k/uL RBC 4.94 (4.30-5.90) m/uL Hgb 14.7 (13.0-17.5) gm/dL Hct 44.2 (39.0-53.0) % MCV 89.4 (80.0-100.0) fL MCH 29.7 (25.0-35.0) pg MCHC 33.2 (31.0-37.0) g/dL RDW 12.6 (11.5-15.5) % Plt Count 228 (150-450) k/uL Neutrophils % 57 % Lymphocytes % 30 % Monocytes % 5 % Eosinophils % 4 % Basophils % 1 % Neutrophils # 4.8 (1.3-7.7) k/uL Lymphocytes # 2.5 (1.0-4.8) k/uL Monocytes # 0.4 (0-1.0) k/uL Eosinophils # 0.4 (0-0.7) k/uL Basophils # 0.1 (0-0.2) k/uL PT 9.8 (9.0-12.0) sec INR 0.9 (<1.2) APTT 24.1 (22.0-30.0) sec Sodium 137 (137-145) mmol/L Potassium 3.9 (3.5-5.1) mmol/L Chloride 105 (98-107) mmol/L Carbon Dioxide 24 (22-30) mmol/L Anion Gap 8 mmol/L BUN 21 H (9-20) mg/dL Creatinine 0.88 (0.66-1.25) mg/dL Est GFR (CKD-EPI)AfAm >90 (>60 ml/min/1.73 sqM) Est GFR (CKD-EPI)NonAf >90 (>60 ml/min/1.73 sqM) Glucose 101 H (74-99) mg/dL Plasma Lactic Acid Samuel (0.7-2.0) mmol/L Calcium 8.8 (8.4-10.2) mg/dL Total Bilirubin 0.4 (0.2-1.3) mg/dL AST 27 (17-59) U/L ALT 34 (4-49) U/L Alkaline Phosphatase 43 (38-126) U/L Total Protein 6.6 (6.3-8.2) g/dL Albumin 3.9 (3.5-5.0) g/dL Amylase 42 (30-110) U/L Lipase 67 (23-300) U/L Urine Color Urine Appearance (Clear) Urine pH (5.0-8.0) Ur Specific Corona (1.001-1.035) Urine Protein (Negative) Urine Glucose (UA) (Negative) Urine Ketones (Negative) Urine Blood (Negative) Urine Nitrite (Negative) Urine Bilirubin (Negative) Urine Urobilinogen (<2.0) mg/dL Ur Leukocyte Esterase (Negative) Urine RBC (0-5) /hpf Urine WBC (0-5) /hpf Urine Mucus (None) /hpf 02/18/20 02/18/20 Range/Units 13:51 15:00 WBC (3.8-10.6) k/uL RBC (4.30-5.90) m/uL Hgb (13.0-17.5) gm/dL Hct (39.0-53.0) % MCV (80.0-100.0) fL MCH (25.0-35.0) pg MCHC (31.0-37.0) g/dL RDW (11.5-15.5) % Plt Count (150-450) k/uL Neutrophils % % Lymphocytes % % Monocytes % % Eosinophils % % Basophils % % Neutrophils # (1.3-7.7) k/uL Lymphocytes # (1.0-4.8) k/uL Monocytes # (0-1.0) k/uL Eosinophils # (0-0.7) k/uL Basophils # (0-0.2) k/uL PT (9.0-12.0) sec INR (<1.2) APTT (22.0-30.0) sec Sodium (137-145) mmol/L Potassium (3.5-5.1) mmol/L Chloride (98-107) mmol/L Carbon Dioxide (22-30) mmol/L Anion Gap mmol/L BUN (9-20) mg/dL Creatinine (0.66-1.25) mg/dL Est GFR (CKD-EPI)AfAm (>60 ml/min/1.73 sqM) Est GFR (CKD-EPI)NonAf (>60 ml/min/1.73 sqM) Glucose (74-99) mg/dL Plasma Lactic Acid Samuel 0.9 (0.7-2.0) mmol/L Calcium (8.4-10.2) mg/dL Total Bilirubin (0.2-1.3) mg/dL AST (17-59) U/L ALT (4-49) U/L Alkaline Phosphatase (38-126) U/L Total Protein (6.3-8.2) g/dL Albumin (3.5-5.0) g/dL Amylase (30-110) U/L Lipase (23-300) U/L Urine Color Yellow Urine Appearance Clear (Clear) Urine pH 6.0 (5.0-8.0) Ur Specific [place] 1.020 (1.001-1.035) Urine Protein Negative (Negative) Urine Glucose (UA) Negative (Negative) Urine Ketones Negative (Negative) Urine Blood Small (Negative) Urine Nitrite Negative (Negative) Urine Bilirubin Negative (Negative) Urine Urobilinogen <2.0 (<2.0) mg/dL Ur Leukocyte Esterase Negative (Negative) Urine RBC 4 (0-5) /hpf Urine WBC 1 (0-5) /hpf Urine Mucus Occasional H (None) /hpf Disposition Clinical Impression: Biliary colic, Right upper quadrant pain Disposition: HOME SELF-CARE Condition: Stable Instructions (If sedation given, give patient instructions): Biliary Colic (ED) Additional Instructions: Please return to the Emergency Department if symptoms worsen or any other concerns. Follow-up with surgery as discussed. Limit high fatty foods. Is patient prescribed a controlled substance at d/c from ED?: No Referrals: Colt Spicer MD [Primary Care Provider] - 1-2 days Kirby Salgado MD [STAFF PHYSICIAN] - 1-2 days
[2020-02-18 14:11] LABS: ALT 34 U/L (4-49); AST 27 U/L (17-59); African American GFR (CKD) >90 (>60 ml/min/1.73 sqM); Albumin 3.9 g/dL (3.5-5.0); Alkaline Phosphatase 43 U/L (38-126); Amylase 42 U/L (30-110); Anion Gap 8 mmol/L; Blood Urea Nitrogen 21 mg/dL (9-20); Calcium 8.8 mg/dL (8.4-10.2); Carbon Dioxide 24 mmol/L (22-30); Chloride 105 mmol/L (98-107); Glucose 101 mg/dL (74-99); Non-African American GFR(CKD) >90 (>60 ml/min/1.73 sqM); Potassium 3.9 mmol/L (3.5-5.1); Sodium 137 mmol/L (137-145); Total Bilirubin 0.4 mg/dL (0.2-1.3); Total Protein 6.6 g/dL (6.3-8.2)
[2020-02-18 14:13] LABS: INR 0.9 (<1.2); Partial Thromboplastin Time 24.1 sec (22.0-30.0); Prothrombin Time 9.8 sec (9.0-12.0)
--- NOTE | 2020-02-18 15:32 | US ---
EXAMINATION TYPE: US gallbladder DATE OF EXAM: 02/18/2020 COMPARISON: NONE CLINICAL HISTORY: RUQ pain. severe pain today. ate burrito 2 hours before US EXAM MEASUREMENTS: Liver Length: 16.9 cm Gallbladder Wall: 0.4 cm CBD: 0.4 cm Right Kidney: 11.9 x 6.8 x 5.2 cm Pancreas: hyperechoic; tail obscured by overlying bowel gas Liver: fatty as is hyperechoic to right renal cortex Gallbladder: thickened wall as is contracted, but may be nondiagnostic due to no fasting state Evidence for sonographic Mir's sign: yes CBD: wnl Right Kidney: No hydronephrosis or masses seen IMPRESSION: Gallbladder is contracted. No gallstones or dilated ducts. Negative exam.
[2020-02-18 15:33] LABS: Mucus,Urine Occasional /hpf; RBC,Urine 4 /hpf (0-5); WBC,Urine 1 /hpf (0-5)
[2020-02-18 15:41] LABS: Color,Urine Yellow
[2020-02-18 15:42] LABS: Appearance,Urine Clear (Clear); Bilirubin,Urine Negative (Negative); Blood,Urine Small (Negative); Glucose,Urine (UA) Negative (Negative); Ketones,Urine Negative (Negative); Leukocyte Esterase,Urine Negative (Negative); Nitrite,Urine Negative (Negative); Protein,Urine Negative (Negative); Urobilinogen,Urine <2.0 mg/dL (<2.0)
== END 2020-02-18 16:17 | disposition home or self-care (01) ==
LOC: EC 13:19
DX: K80.50 Calculus of bile duct without cholangitis or cholecystitis without obstruction (principal); F17.200 Nicotine dependence, unspecified, uncomplicated; K76.0 Fatty (change of) liver, not elsewhere classified; J45.909 Unspecified asthma, uncomplicated; Z79.51 Long term (current) use of inhaled steroids
CPT/HCPCS: 36415; 80053; 82150; 83605; 83690; 85025; 85610; 85730; 81001; 76705; 96374; 96361; 99284; J1885

== ENCOUNTER 2020-02-28 06:32 | Day surgery (SDC) | payer OTHER ==
[2020-02-26 11:13] VITALS: BMI 35.9
[~2020-02-28 06:32] MED LIST: ACETAMINOPHEN TAB 500 MG TAB PO ONE; DEXAMETHASONE SOD PHOSPHATE 10 MG/ML 1 ML VIAL IV ONE; HEPARIN SODIUM,PORCINE 5,000 UNIT/ML 1 ML VIAL SQ ONE; LACTATED RINGERS 1,000 ML IV SCH; LIDOCAINE 1% (10MG/ML) FOR IV START INTRADERMA PRN; ONDANSETRON 4 MG/2 ML VIAL IVP ONE; ceFAZolin 3 GM in SODIUM CHLORIDE 0.9% 100 ML IVPB ONE
[2020-02-28] MEDS ORDERED: HEPARIN SODIUM,PORCINE 5,000 UNIT/ML 1 ML VIAL ONE (07:13)
[2020-02-28] MEDS ORDERED: ONDANSETRON 4 MG/2 ML VIAL ONE (07:13)
[2020-02-28] MEDS ORDERED: ACETAMINOPHEN TAB 500 MG TAB ONE (07:22)
[2020-02-28] MEDS ORDERED: LACTATED RINGERS 1,000 ML IV ONE (07:26)
--- NOTE | 2020-02-28 08:34 | P.GSHP ---
History of Present Illness H&P Date: 02/28/20 Chief Complaint: Right upper quadrant pain This a 31-year-old male presents today for laparoscopic cholestatic. Patient is quite right quadrant pain. His recent shunt shows a contracted gallbladder suggestive of chronic cholecystitis.. He's had pain when eating greasy and fried foods. Past Medical History Past Medical History: Pneumonia Additional Past Medical History / Comment(s): Bronchitis yearly, states restless leg, states taking lasix for edema in legs History of Any Multi-Drug Resistant Organisms: None Reported Past Surgical History: Hernia Repair, Orthopedic Surgery Additional Past Surgical History / Comment(s): lt ankle cyst removed, umbilical hernia repair. Past Anesthesia/Blood Transfusion Reactions: No Reported Reaction Smoking Status: Current every day smoker - Past Family History Mother Family Medical History: No Reported History Additional Family Medical History / Comment(s): Mother had lung problems. Father History Unknown: Yes Medications and Allergies Home Medications Medication Instructions Recorded Confirmed Type Furosemide [Lasix] 40 mg PO DAILY 02/26/20 02/26/20 History Ibuprofen [Motrin] 600 mg PO Q8HR PRN 02/26/20 02/26/20 History rOPINIRole HCL [Requip] 0.25 mg PO DAILY 02/26/20 02/26/20 History Allergies Allergy/AdvReac Type Severity Reaction Status Date / Time No Known Allergies Allergy Verified 02/26/20 11:08 Surgical - Exam Vital Signs Temp Pulse Resp BP Pulse Ox 97.8 F 76 18 122/84 95 02/28/20 07:09 02/28/20 07:09 02/28/20 07:09 02/28/20 07:09 02/28/20 07:09 - General well developed, well nourished, no distress - Eyes PERRL - ENT normal pinna - Neck no masses - Respiratory normal expansion - Cardiovascular Rhythm: regular - Abdomen Abdomen: soft, non tender Assessment and Plan Assessment: Chronic cholecystitis. We'll perform laparoscopic cholecystectomy.
[2020-02-28] MEDS ORDERED: NEOSTIGMINE 1 MG/ML 10 ML VIAL ONE (08:48)
[2020-02-28] MEDS ORDERED: KETOROLAC 30 MG/ML 1 ML VIAL ONE (08:48)
[2020-02-28] MEDS ORDERED: MIDAZOLAM 2 MG/2 ML VIAL ONE (08:48)
[2020-02-28] MEDS ORDERED: SUCCINYLCHOLINE CHLORIDE VIAL 200 MG/10 ML VIAL IV ONE (08:48)
[2020-02-28] MEDS ORDERED: PROPOFOL 10 MG/ML 20 ML VIAL IV ONE (08:48)
[2020-02-28] MEDS ORDERED: ROCURONIUM BROMIDE 10 MG/ML 5 ML VIAL IV ONE (08:48)
[2020-02-28] MEDS ORDERED: fentaNYL (PF) 50 MCG/ML 2 ML AMP ONE (08:48)
[2020-02-28] MEDS ORDERED: LIDOCAINE 1% INJ 10MG/ML (20 ML MDV) ONE (08:48)
[2020-02-28] MEDS ORDERED: HYDROmorphone (PF) 1 MG/ML ONE (08:48)
[2020-02-28] MEDS ORDERED: GLYCOPYRROLATE 0.2 MG/ML 2 ML VIAL ONE (08:48)
[2020-02-28] MEDS ORDERED: LIDOCAINE 1%-EPI 1:100,000 20 ML VIAL SQ ONE (09:11)
--- NOTE | 2020-02-28 09:27 | P.OP ---
Date of Procedure: 02/28/20 Preoperative Diagnosis: Cholecystitis Postoperative Diagnosis: Cholecystitis Procedure(s) Performed: Laparoscopic cholecystectomy Anesthesia: ANDRÉS Surgeon: Kirby Salgado Estimated Blood Loss (ml): 5 Pathology: other (Gallbladder) Condition: stable Disposition: PACU Description of Procedure: The patient was placed on the operating table. The patient received a general endotracheal tube anesthesia. The patients abdomen was prepped and draped in the usual sterile fashion. Through an infraumbilical stab incision, the fascia of the anterior abdominal wall was grasped with a pair of Kochers and then the Veress needle was placed in the peritoneal cavity. Position of the Veress needle was confirmed with positive drop test. The abdomen was then insufflated. After adequate insufflation, the 10 mm trocar was placed in the peritoneal cavity. Following this the laparoscope was placed in the peritoneal cavity. The patient was placed in the head-up, right side up position and then a 5 mm trocar was placed in the right lateral and right subcostal position under direct visualization. A 8 mm trocar was placed in the epigastric position. The gallbladder was grasped in the fundus and infundibulum. Traction on the gallbladder was placed in the lateral and the cephalad positions. The triangle of Calot was visualized.. The cystic duct was bluntly dissected until the union of the cystic duct and common bile duct was seen. A critical view of safety was achieved. The cystic duct was then divided and sealed with the Harmonic scissors. A PDS Endoloop was then placed throughout the cystic duct stump. The cystic artery divided and sealed with the Harmonic scissors. The gallbladder was then removed from the liver bed using Harmonic scissors. The gallbladder was then extracted through the epigastric port site. Operative field was checked for any bleeding spots and Harmonic scissors was used to coagulate the liver bed. The abdomen was irrigated. The trocars were removed. The skin was closed using interrupted 3-0 Vicryl suture. Dermabond dressing were applied. The patient tolerated the procedure well.
[2020-02-28] MEDS: HYDROmorphone 0.5 MG/0.5 ML SYRINGE IVP PRN ×4 (09:33→09:51)
[2020-02-28 09:39] VITALS: TEMP 97.1
[2020-02-28] MEDS ORDERED: ONDANSETRON 4 MG/2 ML VIAL IVP ONE (09:53)
[2020-02-28] MEDS ORDERED: diphenhydrAMINE 50 MG/ML 1 ML VIAL IVP ONE (09:53)
[2020-02-28 10:38] VITALS: RESP 16
[2020-02-28 11:04] VITALS: BP 118/73; PULSE 84
== END 2020-02-28 11:24 | disposition home or self-care (01) ==
LOC: OR 06:32
PROVIDERS: ATTEND Surgery
DX: K81.1 Chronic cholecystitis (principal); G25.81 Restless legs syndrome; F17.200 Nicotine dependence, unspecified, uncomplicated; Z87.01 Personal history of pneumonia (recurrent); Z79.899 Other long term (current) drug therapy; Z98.890 Other specified postprocedural states
CPT/HCPCS: 88304; 47562; J2250; J0330; J1200; J1644; J1100; J2710; J0690; J2405; J2001; J3010; J1885; J1170 ×2; J2704

== ENCOUNTER 2022-02-08 19:53 | Emergency (ER) | payer OTHER ==
[2022-02-08 19:57] VITALS: TEMP 97.6
[2022-02-08] MEDS ORDERED: HYDROcodone/APAP 10-325MG 1 EACH TAB PO ONE (20:51)
[2022-02-08] MEDS ORDERED: SODIUM CHLORIDE 0.9% 1,000 ML IV STA (20:56)
--- NOTE | 2022-02-08 21:17 | XR ---
EXAMINATION TYPE: XR shoulder complete BILAT DATE OF EXAM: 02/08/2022 COMPARISON: NONE HISTORY: Pain TECHNIQUE: 3 views each shoulder FINDINGS: There is no evidence of fracture nor dislocation. Joint spaces are fairly normal. AC joints are intact. IMPRESSION: Negative bilateral shoulder exam. No fracture.
[2022-02-08 21:21] LABS: Basophils # (A) 0.1 k/uL (0-0.2); Basophils % (A) 1 %; Eosinophils # (A) 0.3 k/uL (0-0.7); Eosinophils % (A) 4 %; HCT 46.3 % (39.0-53.0); HGB 15.6 gm/dL (13.0-17.5); Lymphocytes # (A) 3.2 k/uL (1.0-4.8); Lymphocytes % (A) 33 %; MCH 31.7 pg (25.0-35.0); MCHC 33.7 g/dL (31.0-37.0); Mean Platelet Volume 7.7; Monocytes # (A) 0.6 k/uL (0-1.0); Monocytes % (A) 6 %; Neutrophils # (A) 5.3 k/uL (1.3-7.7); Neutrophils % (A) 54 %; Platelet Count 228 k/uL (150-450); RBC 4.92 m/uL (4.30-5.90); WBC 9.7 k/uL (3.8-10.6)
[2022-02-08 21:42] LABS: ALT 33 U/L (4-49); AST 30 U/L (17-59); African American GFR (CKD) >90 (>60 ml/min/1.73 sqM); Albumin 4.3 g/dL (3.5-5.0); Alkaline Phosphatase 52 U/L (38-126); Anion Gap 8 mmol/L; Blood Urea Nitrogen 22 mg/dL (9-20); C Reactive Protein 1.2 mg/dL (<1.0); Calcium 9.2 mg/dL (8.4-10.2); Carbon Dioxide 27 mmol/L (22-30); Chloride 104 mmol/L (98-107); Creatine Kinase 190 U/L (55-170); Non-African American GFR(CKD) 82 (>60 ml/min/1.73 sqM); Potassium 4.1 mmol/L (3.5-5.1); Sodium 139 mmol/L (137-145); Total Bilirubin <0.1 mg/dL (0.2-1.3); Total Protein 7.1 g/dL (6.3-8.2)
[2022-02-08 21:55] LABS: Glucose 97 mg/dL (74-99)
--- NOTE | 2022-02-08 22:02 | ED ---
Extremity Problem HPI - General Chief complaint: Extremity Problem,Nontraumatic Stated complaint: Bilat shoulder pain Time Seen by Provider: 02/08/22 20:11 Source: patient Mode of arrival: ambulatory Limitations: no limitations - History of Present Illness Initial comments: This is a 41-year-old male who presents to the emergency department for evaluation of bilateral shoulder pain. Patient states the pain started 3 weeks ago. States he woke up with the pain and was intermittent until recently when the pain has been constant. 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 States the pain is deep in the shoulders. Pain is worse and with overhead movements. Improvement with Motrin. Denies numbness and tingling. Denies fever, chills, shortness of breath, chest pain, sweating, developing, nausea, and vomiting. - Related Data Previous Rx's Medication Instructions Recorded HYDROcodone/APAP 10-325MG [[place] 1 tab PO Q4HR PRN 3 Days #18 tab 02/08/22 10-325] Allergies Allergy/AdvReac Type Severity Reaction Status Date / Time No Known Allergies Allergy Verified 02/08/22 21:15 Review of Systems ROS Statement: Those systems with pertinent positive or pertinent negative responses have been documented in the HPI. ROS Other: All systems not noted in ROS Statement are negative. Past Medical History Past Medical History: Pneumonia Additional Past Medical History / Comment(s): Bronchitis yearly, states restless leg, states taking lasix for edema in legs History of Any Multi-Drug Resistant Organisms: None Reported Past Surgical History: Hernia Repair, Orthopedic Surgery Additional Past Surgical History / Comment(s): lt ankle cyst removed, umbilical hernia repair. Past Anesthesia/Blood Transfusion Reactions: No Reported Reaction Past Psychological History: No Psychological Hx Reported Smoking Status: Current every day smoker - Past Family History Mother Family Medical History: No Reported History Additional Family Medical History / Comment(s): Mother had lung problems. Father History Unknown: Yes General Exam Limitations: no limitations General appearance: alert, in no apparent distress Head exam: Present: atraumatic, normocephalic, normal inspection Eye exam: Present: normal appearance, PERRL, EOMI. Absent: scleral icterus, conjunctival injection, periorbital swelling Respiratory exam: Present: normal lung sounds bilaterally. Absent: respiratory distress, wheezes, rales, rhonchi, stridor Cardiovascular Exam: Present: regular rate, normal rhythm, normal heart sounds. Absent: systolic murmur, diastolic murmur, rubs, gallop, clicks Left Shoulder Exam: Present: normal inspection, full ROM, tenderness (anterior shoulder ). Absent: swelling, abrasion, laceration, ecchymosis, deformity, crepitus, dislocation, erythema, tenderness over AC joint Upper Arm exam: Present: normal inspection, full ROM. Absent: tenderness, swelling Neuro motor exam: Present: wrist extension intact, thumb opposition intact, th umb IP flexion intact, thumb adduction intact, fingers 2-5 abduction intact Neurosensory exam: Present: radial nerve intact, ulnar nerve intact, median nerve intact Vascular: Present: normal capillary refill. Absent: vascular compromise Right Shoulder Exam: Present: normal inspection, full ROM, tenderness (anterior ). Absent: swelling, abrasion, laceration, ecchymosis, deformity, crepitus, dislocation, erythema, tenderness over AC joint Upper Arm exam: Present: normal inspection, full ROM. Absent: tenderness, swelling Course Vital Signs 02/08/22 19:54 Temperature 97.6 F Pulse Rate 92 Respiratory 18 Rate Blood Pressure 127/88 O2 Sat by Pulse 98 Oximetry Medical Decision Making - Medical Decision Making This is a 41-year-old male who presents with bilateral shoulder pain. Thorough history and examination were performed. There is mild tenderness with palpation of the bilateral anterior shoulders. No tenderness at the AC joints. Neurovascularly intact. Full range of motion although flexion of the bilateral shoulders causes significant pain. X-rays were obtained and are negative for acute process. Laboratory studies obtained. Creatine kinase mildly elevated at 190, CRP mildly elevated at 1.2. ESR pending. Pain controlled with [place]. At this time there are no diagnostic studies to explain patient's symptoms. Patient referred to networking specialist. I'll send him home with short course of [place]. Dr. Matamoros is my attending. - Lab Data Result diagrams: 02/08/22 21:15 02/08/22 21:15 Lab Results 02/08/22 02/08/22 Range/Units 21:15 21:15 WBC 9.7 (3.8-10.6) k/uL RBC 4.92 (4.30-5.90) m/uL Hgb 15.6 (13.0-17.5) gm/dL Hct 46.3 (39.0-53.0) % MCV 94.0 (80.0-100.0) fL MCH 31.7 (25.0-35.0) pg MCHC 33.7 (31.0-37.0) g/dL RDW 13.0 (11.5-15.5) % Plt Count 228 (150-450) k/uL MPV 7.7 Neutrophils % 54 % Lymphocytes % 33 % Monocytes % 6 % Eosinophils % 4 % Basophils % 1 % Neutrophils # 5.3 (1.3-7.7) k/uL Lymphocytes # 3.2 (1.0-4.8) k/uL Monocytes # 0.6 (0-1.0) k/uL Eosinophils # 0.3 (0-0.7) k/uL Basophils # 0.1 (0-0.2) k/uL Sodium 139 (137-145) mmol/L Potassium 4.1 (3.5-5.1) mmol/L Chloride 104 (98-107) mmol/L Carbon Dioxide 27 (22-30) mmol/L Anion Gap 8 mmol/L BUN 22 H (9-20) mg/dL Creatinine 1.12 (0.66-1.25) mg/dL Est GFR (CKD-EPI)AfAm >90 (>60 ml/min/1.73 sqM) Est GFR (CKD-EPI)NonAf 82 (>60 ml/min/1.73 sqM) Glucose 97 (74-99) mg/dL Calcium 9.2 (8.4-10.2) mg/dL Total Bilirubin <0.1 L (0.2-1.3) mg/dL AST 30 (17-59) U/L ALT 33 (4-49) U/L Alkaline Phosphatase 52 (38-126) U/L Creatine Kinase 190 H (55-170) U/L C-Reactive Protein 1.2 H (<1.0) mg/dL Total Protein 7.1 (6.3-8.2) g/dL Albumin 4.3 (3.5-5.0) g/dL Disposition Clinical Impression: Bilateral shoulder pain Disposition: HOME SELF-CARE Condition: Good Instructions (If sedation given, give patient instructions): Shoulder Pain (ED) Additional Instructions: Take Brunswick as directed. Please follow up with networking specialist in 1-2 days. Take Motrin or Tylenol for pain after Brunswick runs out. Return to the emergency department if you experience new, concerning, or worsening symptoms. Prescriptions: HYDROcodone/APAP 10-325MG [[place] 10-325] 1 tab PO Q4HR PRN 3 Days #18 tab PRN Reason: Pain Is patient prescribed a controlled substance at d/c from ED?: No Referrals: Colt Spicer MD [Primary Care Provider] - 1-2 days Juan Lovelace PAC [PHYSICIAN ENGLISH DRAWER] - 1-2 days Time of Disposition: 22:02
[2022-02-08 22:17] VITALS: BP 117/79; PULSE 73; RESP 16
[2022-02-08 22:21] LABS: Erythrocyte Sedimentation Rate 3 mm/hr (0-15)
== END 2022-02-08 22:17 | disposition home or self-care (01) ==
LOC: EC 19:53
DX: M25.511 Pain in right shoulder (principal); M25.512 Pain in left shoulder; F17.200 Nicotine dependence, unspecified, uncomplicated
CPT/HCPCS: 36415; 80053; 82550; 85025; 85652; 86140; 96360; 99283

== ENCOUNTER → 2022-05-29 | Outpatient (CLI) | payer BC ==
--- NOTE | 2022-05-30 05:31 | MR ---
EXAMINATION TYPE: MR shoulder RT wo con DATE OF EXAM: 05/29/2022 COMPARISON: None HISTORY: Rt shoulder pain Multiplanar multiecho imaging of the right shoulder performed without contrast. There is a mild shoulder joint effusion. The biceps tendon is intact. The glenoid anai appear intact . No fracture seen. There is full-thickness defect in the supraspinatus tendon at the attachment on t he greater tuberosity of the humerus. No retraction. There is slight thickening and increased signal in the supraspinatus tendon. There is small subdeltoid effusion. There is mild spurring at the AC bev nt. No significant subacromial impingement. No fracture seen. There is mild edema at the AC joint. Th e infraspinatus tendon is intact. No fracture seen. No focal bone destruction. IMPRESSION: Full-thickness tear of the supraspinatus tendon at the attachment on the greater tuberosity. No retra ction. Shoulder joint effusion and subdeltoid effusion consistent with synovitis and bursitis.
== END | disposition home or self-care (01) ==
LOC: RADMRIMAIN 06:04
PROVIDERS: ATTEND Orthopaedic Surgery
DX: M75.111 Incomplete rotator cuff tear or rupture of right shoulder, not specified as traumatic (principal); M25.411 Effusion, right shoulder; M25.511 Pain in right shoulder

== ENCOUNTER 2022-12-27 08:17 | Emergency (ER) | payer BC, OTHER ==
[2022-12-27] MEDS ORDERED: KETOROLAC 15 MG/ML 1 ML VIAL IVP STA (08:38)
[2022-12-27] MEDS ORDERED: SODIUM CHLORIDE 0.9% 1,000 ML IV STA (08:40)
--- NOTE | 2022-12-27 08:42 | ED ---
General Adult HPI - General Chief complaint: Weakness Stated complaint: Fatigue Time Seen by Provider: 12/27/22 08:33 Source: patient, RN notes reviewed Mode of arrival: ambulatory Limitations: no limitations - History of Present Illness Initial comments: Patient is a pleasant 42-year-old male presenting to the emergency department. Well. Onset of symptoms was yesterday. Patient has been very fatigued. Patient slept most the day yesterday. Patient has had cough and congestion and a little bit of wheezing. Patient is a smoker. No chest pain. Patient does have some diffuse achiness, mostly lower back. No dysuria. - Related Data Previous Rx's Medication Instructions Recorded HYDROcodone/APAP 10-325MG [[place] 1 tab PO Q4HR PRN 3 Days #18 tab 02/08/22 10-325] Albuterol Inhaler [Ventolin Hfa 2 puff INHALATION Q4HR PRN #1 each 12/27/22 Inhaler] predniSONE [Deltasone] 20 mg PO BID #10 tab 12/27/22 Allergies Allergy/AdvReac Type Severity Reaction Status Date / Time No Known Allergies Allergy Verified 12/27/22 08:24 Review of Systems ROS Statement: Those systems with pertinent positive or pertinent negative responses have been documented in the HPI. ROS Other: All systems not noted in ROS Statement are negative. Constitutional: Denies: fever, chills Eyes: Denies: eye pain ENT: Denies: ear pain Respiratory: Reports: as per HPI, cough, wheezes Cardiovascular: Denies: chest pain Endocrine: Reports: fatigue Gastrointestinal: Denies: abdominal pain Genitourinary: Denies: dysuria Musculoskeletal: Reports: as per HPI (Lower back on the sides) Skin: Denies: rash Neurological: Denies: weakness Past Medical History Past Medical History: Pneumonia Additional Past Medical History / Comment(s): Bronchitis yearly, states restless leg, states taking lasix for edema in legs History of Any Multi-Drug Resistant Organisms: None Reported Past Surgical History: Cholecystectomy, Hernia Repair, Orthopedic Surgery Additional Past Surgical History / Comment(s): lt ankle cyst removed, umbilical hernia repair. Past Anesthesia/Blood Transfusion Reactions: No Reported Reaction Past Psychological History: No Psychological Hx Reported Smoking Status: Current every day smoker Past Alcohol Use History: Occasional Past Drug Use History: None Reported - Past Family History Mother Family Medical History: No Reported History Additional Family Medical History / Comment(s): Mother had lung problems. Father History Unknown: Yes General Exam Limitations: no limitations General appearance: alert, in no apparent distress Head exam: Present: normocephalic Eye exam: Present: normal appearance Neck exam: Present: normal inspection. Absent: meningismus Respiratory exam: Present: wheezes (Trace expiratory wheeze) Cardiovascular Exam: Present: regular rate, normal rhythm Expanded Peripheral pulses: 2+: Radial (R), Radial (L), Posterior Tibialis (R), Posterior Tibialis (L) GI/Abdominal exam: Present: soft, normal bowel sounds. Absent: distended, tenderness, guarding, rebound, rigid, pulsatile mass Extremities exam: Present: normal inspection. Absent: pedal edema, calf tenderness Back exam: Present: normal inspection. Absent: tenderness, CVA tenderness (R), CVA tenderness (L), vertebral tenderness Neurological exam: Present: alert Psychiatric exam: Present: normal affect, normal mood Skin exam: Present: normal color Course Vital Signs 12/27/22 12/27/22 12/27/22 08:20 08:28 09:59 Temperature 98.6 F 98.8 F Pulse Rate 80 78 88 Respiratory 18 20 18 Rate Blood Pressure 131/85 137/80 O2 Sat by Pulse 94 L 96 Oximetry 12/27/22 12/27/22 10:06 12:19 Temperature 98.5 F Pulse Rate 80 60 Respiratory 18 20 Rate Blood Pressure 112/70 O2 Sat by Pulse 100 Oximetry Medical Decision Making - Medical Decision Making Was pt. sent in by a medical professional or institution (, PA, BOILING TUB OPERATOR, urgent c are, hospital, or shelter...) When possible be specific @ -No Did you speak to anyone other than the patient for history (EMS, parent, family, police, friend...)? What history was obtained from this source @ -No Did you review nursing and triage notes (agree or disagree)? Why? @ -I reviewed nursing and triage notes. Patient denies chest pain. Were old charts reviewed (outside hosp., previous admission, EMS record, old EKG, old radiological studies, urgent care reports/EKG's, shelter records)? Report findings @ -No old charts were reviewed Differential Diagnosis (chest pain, altered mental status, abdominal pain women, abdominal pain men, vaginal bleeding, weakness, fever, dyspnea, syncope, headache, dizziness, GI bleed, back pain, seizure, CVA, palpatations, mental health)? @ - EKG interpreted by me (3pts min.). @ -As above X-rays interpreted by me (1pt min.). @ -Chest x-ray shows no acute process. Abdominal x-ray shows no acute process CT interpreted by me (1pt min.). @ -Report reviewed U/S interpreted by me (1pt. min.). @ -None done What testing was considered but not performed or refused? (CT, X-rays, U/S, labs)? Why? @ -None What meds were considered but not given or refused? Why? @ -None Did you discuss the management of the patient with other professionals (professionals i.e. , PA, BOILING TUB OPERATOR, lab, RT, psych nurse, social worker palliative care, armored car guard, teacher, chief juvenile probation officer, case folder)? Give summary @ -No Was smoking cessation discussed for >3mins.? @ -No Was critical care preformed (if so, how long)? @ -No Were there social determinants of health that impacted care today? How? (Homelessness, low income, unemployed, alcoholism, drug addiction, transportation, low edu. Level, literacy, decrease access to med. care, intermediate, rehab)? @ -No Was there de-escalation of care discussed even if they declined (Discuss DNR or withdrawal of care, Hospice)? DNR status @ -No What co-morbidities impacted this encounter? (DM, HTN, Smoking, COPD, CAD, Cancer, CVA, ARF, Chemo, Hep., AIDS, mental health diagnosis, sleep apnea, morbid obesity)? @ -None Was patient admitted / discharged? Hospital course, mention meds given and rout e, prescriptions, significant lab abnormalities, going to OR and other pertinent info. @ -Patient reevaluated and is feeling better. Patient is updated on results. Patient is comfortable with discharge home. Patient still having some discomfort of his back. Patient does admit to having chronic back pain. Reports reviewed. Patient is receptive to discharge with an inhaler and steroids. Undiagnosed new problem with uncertain prognosis? @ -No Drug Therapy requiring intensive monitoring for toxicity (Heparin, Nitro, Insulin, Cardizem)? @ -No Were any procedures done? @ -No Diagnosis/symptom? @ -Upper respiratory infection, lower back pain Acute, or Chronic, or Acute on Chronic? @ -Acute, acute on chronic Uncomplicated (without systemic symptoms) or Complicated (systemic symptoms)? @ -default Side effects of treatment? @ -No Exacerbation, Progression, or Severe Exacerbation? @ -No Poses a threat to life or bodily function? How? (Chest pain, [place], [place], pneumonia, PE, COPD, DKA, ARF, appy, cholecystitis, CVA, Diverticulitis, Homicidal, Suicidal, threat to staff... and all critical care pts) @ -No - Lab Data Result diagrams: 12/27/22 08:56 12/27/22 08:56 Lab Results 12/27/22 12/27/22 12/27/22 Range/Units 08:39 08:56 08:56 WBC 7.4 (3.8-10.6) k/uL RBC 4.96 (4.30-5.90) m/uL Hgb 15.4 (13.0-17.5) gm/dL Hct 46.2 (39.0-53.0) % MCV 93.1 (80.0-100.0) fL MCH 31.0 (25.0-35.0) pg MCHC 33.3 (31.0-37.0) g/dL RDW 12.9 (11.5-15.5) % Plt Count 196 (150-450) k/uL MPV 7.7 Neutrophils % 73 % Lymphocytes % 15 % Monocytes % 7 % Eosinophils % 3 % Basophils % 0 % Neutrophils # 5.4 (1.3-7.7) k/uL Lymphocytes # 1.1 (1.0-4.8) k/uL Monocytes # 0.5 (0-1.0) k/uL Eosinophils # 0.2 (0-0.7) k/uL Basophils # 0.0 (0-0.2) k/uL Sodium 137 (137-145) mmol/L Potassium 4.1 (3.5-5.1) mmol/L Chloride 105 (98-107) mmol/L Carbon Dioxide 24 (22-30) mmol/L Anion Gap 8 mmol/L BUN 14 (9-20) mg/dL Creatinine 0.87 (0.66-1.25) mg/dL Est GFR (CKD-EPI)AfAm >90 (>60 ml/min/1.73 sqM) Est GFR (CKD-EPI)NonAf >90 (>60 ml/min/1.73 sqM) Glucose 120 H (74-99) mg/dL Calcium 8.6 (8.4-10.2) mg/dL Total Bilirubin 0.4 (0.2-1.3) mg/dL AST 26 (17-59) U/L ALT 28 (4-49) U/L Alkaline Phosphatase 52 (38-126) U/L Total Protein 6.9 (6.3-8.2) g/dL Albumin 4.0 (3.5-5.0) g/dL Amylase 52 (30-110) U/L Lipase 55 (23-300) U/L Urine Color Urine Appearance (Clear) Urine pH (5.0-8.0) Ur Specific [place] (1.001-1.035) Urine Protein (Negative) Urine Glucose (UA) (Negative) Urine Ketones (Negative) Urine Blood (Negative) Urine Nitrite (Negative) Urine Bilirubin (Negative) Urine Urobilinogen (<2.0) mg/dL Ur Leukocyte Esterase (Negative) Influenza Type A (PCR) Not Detected (Not Detectd) Influenza Type B (PCR) Not Detected (Not Detectd) RSV (PCR) Not Detected (Not Detectd) SARS-CoV-2 (PCR) Not Detected (Not Detectd) 12/27/22 Range/Units 09:01 WBC (3.8-10.6) k/uL RBC (4.30-5.90) m/uL Hgb (13.0-17.5) gm/dL Hct (39.0-53.0) % MCV (80.0-100.0) fL MCH (25.0-35.0) pg MCHC (31.0-37.0) g/dL RDW (11.5-15.5) % Plt Count (150-450) k/uL MPV Neutrophils % % Lymphocytes % % Monocytes % % Eosinophils % % Basophils % % Neutrophils # (1.3-7.7) k/uL Lymphocytes # (1.0-4.8) k/uL Monocytes # (0-1.0) k/uL Eosinophils # (0-0.7) k/uL Basophils # (0-0.2) k/uL Sodium (137-145) mmol/L Potassium (3.5-5.1) mmol/L Chloride (98-107) mmol/L Carbon Dioxide (22-30) mmol/L Anion Gap mmol/L BUN (9-20) mg/dL Creatinine (0.66-1.25) mg/dL Est GFR (CKD-EPI)AfAm (>60 ml/min/1.73 sqM) Est GFR (CKD-EPI)NonAf (>60 ml/min/1.73 sqM) Glucose (74-99) mg/dL Calcium (8.4-10.2) mg/dL Total Bilirubin (0.2-1.3) mg/dL AST (17-59) U/L ALT (4-49) U/L Alkaline Phosphatase (38-126) U/L Total Protein (6.3-8.2) g/dL Albumin (3.5-5.0) g/dL Amylase (30-110) U/L Lipase (23-300) U/L Urine Color Yellow Urine Appearance Clear (Clear) Urine pH 6.5 (5.0-8.0) Ur Specific [place] 1.017 (1.001-1.035) Urine Protein Negative (Negative) Urine Glucose (UA) Negative (Negative) Urine Ketones Negative (Negative) Urine Blood Negative (Negative) Urine Nitrite Negative (Negative) Urine Bilirubin Negative (Negative) Urine Urobilinogen <2.0 (<2.0) mg/dL Ur Leukocyte Esterase Negative (Negative) Influenza Type A (PCR) (Not Detectd) Influenza Type B (PCR) (Not Detectd) RSV (PCR) (Not Detectd) SARS-CoV-2 (PCR) (Not Detectd) Disposition Clinical Impression: Upper respiratory infection, Low back pain Disposition: HOME SELF-CARE Condition: Stable Instructions (If sedation given, give patient instructions): Upper Respiratory Infection (ED), Back Pain (ED) Additional Instructions: Prescriptions have been sent to pharmacy. Please do follow-up through primary care physician in the next day or 2 for recheck. Return for fevers, weakness, difficulty breathing, worsening or change in symptoms or other concerns. Prescriptions: predniSONE [Deltasone] 20 mg PO BID #10 tab Albuterol Inhaler [Ventolin Hfa Inhaler] 2 puff INHALATION Q4HR PRN #1 each PRN Reason: Dyspnea Is patient prescribed a controlled substance at d/c from ED?: No Referrals: Colt Spicer MD [Primary Care Provider] - 1-2 days Time of Disposition: 12:55
[2022-12-27 09:02] LABS: Basophils % (A) 0 %; Eosinophils # (A) 0.2 k/uL (0-0.7); Eosinophils % (A) 3 %; HCT 46.2 % (39.0-53.0); HGB 15.4 gm/dL (13.0-17.5); Lymphocytes # (A) 1.1 k/uL (1.0-4.8); Lymphocytes % (A) 15 %; MCHC 33.3 g/dL (31.0-37.0); MCV 93.1 fL (80.0-100.0); Mean Platelet Volume 7.7; Monocytes # (A) 0.5 k/uL (0-1.0); Monocytes % (A) 7 %; Neutrophils # (A) 5.4 k/uL (1.3-7.7); Neutrophils % (A) 73 %; Platelet Count 196 k/uL (150-450); RBC 4.96 m/uL (4.30-5.90); RDW 12.9 % (11.5-15.5); WBC 7.4 k/uL (3.8-10.6)
[2022-12-27] MEDS ORDERED: ALBUTEROL HFA INHALER INHALATION STA (09:12)
[2022-12-27 09:13] LABS: ALT 28 U/L (4-49); AST 26 U/L (17-59); African American GFR (CKD) >90 (>60 ml/min/1.73 sqM); Alkaline Phosphatase 52 U/L (38-126); Amylase 52 U/L (30-110); Anion Gap 8 mmol/L; Blood Urea Nitrogen 14 mg/dL (9-20); Calcium 8.6 mg/dL (8.4-10.2); Carbon Dioxide 24 mmol/L (22-30); Chloride 105 mmol/L (98-107); Glucose 120 mg/dL (74-99); Lipase 55 U/L (23-300); Non-African American GFR(CKD) >90 (>60 ml/min/1.73 sqM); Potassium 4.1 mmol/L (3.5-5.1); Sodium 137 mmol/L (137-145); Total Bilirubin 0.4 mg/dL (0.2-1.3); Total Protein 6.9 g/dL (6.3-8.2)
--- NOTE | 2022-12-27 09:15 | XR ---
EXAMINATION TYPE: XR chest 2V DATE OF EXAM: 12/27/2022 COMPARISON: 08/18/2019 HISTORY: Chest pain TECHNIQUE: Frontal and lateral views of the chest are obtained. FINDINGS: There is no focal air space opacity. No evidence for pneumothorax. No pleural effusion. The cardiac silhouette size is within normal limits. The osseous structures are grossly intact. IMPRESSION: 1. No acute cardiopulmonary process.
--- NOTE | 2022-12-27 09:16 | XR ---
EXAMINATION TYPE: XR abdomen 1V DATE OF EXAM: 12/27/2022 COMPARISON: NONE HISTORY: Pain TECHNIQUE: Single supine KUB image of the abdomen is obtained FINDINGS: Small bowel demonstrates no evidence for dilatation or air fluid levels. Gas and fecal material is seen in non-distended colon. No convincing evidence for pneumoperitoneum. No unusual calcifications. The lung bases are clear. The osseous structures are intact. IMPRESSION: 1. Overall nonobstructive bowel gas pattern.
[2022-12-27 09:49] LABS: Appearance,Urine Clear (Clear); Bilirubin,Urine Negative (Negative); Blood,Urine Negative (Negative); Color,Urine Yellow; Glucose,Urine (UA) Negative (Negative); Ketones,Urine Negative (Negative); Leukocyte Esterase,Urine Negative (Negative); Nitrite,Urine Negative (Negative); PH, Urine 6.5 (5.0-8.0); Protein,Urine Negative (Negative); Specific Gravity,Urine 1.017 (1.001-1.035); Urobilinogen,Urine <2.0 mg/dL (<2.0)
[2022-12-27] MEDS ORDERED: IPRATROPIUM-ALBUTEROL 3 ML NEB INHALATION STA (09:56)
[2022-12-27] MEDS ORDERED: HYDROmorphone 1 MG/ML 1 ML SYRINGE IVP STA (10:47)
--- NOTE | 2022-12-27 11:13 | CT ---
EXAMINATION TYPE: CT lumbar spine wo con DATE OF EXAM: 12/27/2022 COMPARISON: None HISTORY: Bilateral flank pain and weakness. CT DLP: 1664.[address] of the lumbar spine was performed. Bone and soft tissue window settings are submitted as well as coronal and sagittal reconstructions. L1-L2: Normal disc space height. No disc herniation protrusion or central stenosis. No facet joint arthropathy. No evidence for foraminal encroachment. L2-L3: Normal disc space height. No disc herniation protrusion or central stenosis. No facet joint arthropathy. No evidence for foraminal encroachment. L3-L4: Normal disc space height. No disc herniation protrusion or central stenosis. No facet joint arthropathy. No evidence for foraminal encroachment. L4-L5: Normal disc space height. No disc herniation protrusion or central stenosis. No facet joint arthropathy. No evidence for foraminal encroachment. L5-S1: There is grade 1 anterolisthesis of L5 on S1 measuring 4 mm secondary to chronic bilateral spo ndylolysis. There is moderate degenerative disc space narrowing and posterior disc bulge. There is ef facement of the ventral thecal sac with bilateral lateral recess stenosis difficult to exclude. There is bilateral foraminal encroachment. Vacuum disc seen. No evidence for central stenosis. No paraspinal masses are identified. Lumbar segments are free of fracture. IMPRESSION: 1. Grade 1 anterolisthesis L5 on S1 secondary to chronic bilateral spondylolysis. Associated degenera tive change and disc bulging. Bilateral lateral recess stenosis and foraminal encroachment.
[2022-12-27 12:21] VITALS: TEMP 98.5
[2022-12-27] MEDS ORDERED: ACETAMINOPHEN IV (For NPO) 1,000 MG in EMPTY BAG 1 BAG IVPB STA (12:28)
[2022-12-27] MEDS ORDERED: ACET/COD 300 MG/30 MG STARTER PACK 6 TAB BTL PO STA (12:51)
[2022-12-27 13:40] VITALS: BP 156/75; PULSE 80; RESP 16
== END 2022-12-27 13:39 | disposition home or self-care (01) ==
LOC: EC 08:17
DX: J06.9 Acute upper respiratory infection, unspecified (principal); M43.17 Spondylolisthesis, lumbosacral region; M47.816 Spondylosis without myelopathy or radiculopathy, lumbar region; M48.061 Spinal stenosis, lumbar region without neurogenic claudication; M51.36 Other intervertebral disc degeneration, lumbar region; F17.200 Nicotine dependence, unspecified, uncomplicated; Z20.822 Contact with and (suspected) exposure to COVID-19
CPT/HCPCS: 36415; 94640; 80053; 82150; 83690; 85025; 81003; 87636; 71046; 74018; 72131; 99285; 96365; 96375 ×2; 96361 ×5; J1170; J0131; J1885

== ENCOUNTER → 2023-11-23 | Outpatient (CLI) | payer BC, OTHER | LOC: CPPFTMAIN 07:07 | PROVIDERS: ATTEND Family Medicine | DX: R06.2 Wheezing (principal); F17.200 Nicotine dependence, unspecified, uncomplicated | CPT/HCPCS: 94060; 94726; 94729 ==

== ENCOUNTER → 2023-12-06 | Outpatient (CLI) | payer BC, OTHER ==
--- NOTE | 2023-12-06 20:30 | US ---
EXAMINATION TYPE: US abdomen complete DATE OF EXAM: 12/06/2023 COMPARISON: US gallbladder 02/18/2020 CLINICAL INDICATION: Male, 42 years old with history of R10.11 RIGHT UPPER QUADRANT PAIN; RUQ pain. H x cholecystectomy. TECHNIQUE: Multiple sonographic images of the abdomen are obtained. FINDINGS: EXAM MEASUREMENTS: Liver Length: 19.1 cm Gallbladder Wall: Surgically absent. CBD: Obscured. Spleen: 11.5 cm Right Kidney: 12.9 x 6.4 x 5.7 cm Left Kidney: 11.2 x 5.8 x 5.7 cm HOUSE ADMIN NOTES: Limited due to gas and patient body habitus. Pancreas: Limited visibility. Portions seen appear hyperechoic. Liver: Appears enlarged and heterogeneous with increased echogenicity. Coarse echotexture. Gallbladder: Surgically absent. CBD: Obscured Spleen: Slightly limited. Right Kidney: Slightly enlarged versus measuring upper limits. No hydronephrosis or masses seen Left Kidney: No hydronephrosis or masses seen Upper IVC: Appears wnl Abd Aorta: Portions seen appear wnl. Iliac arteries were obscured. Limited visibility of the pancreas due to overlying bowel gas. Liver is enlarged with heterogenous ap pearance. There is diffuse increased echogenicity and coarsened echotexture. This appearance limits e valuation for small hepatic masses. No gross evidence of mass. No intrahepatic biliary duct dilatatio n. No overt surface nodularity. Postcholecystectomy changes. Common bile duct is obscured by overlyin g bowel gas. The visualized spleen is within normal limits. Both kidneys demonstrate no evidence of h ydronephrosis, solid mass, or nephrolithiasis. The visualized portions of the upper IVC and abdominal aorta are within normal limits. IMPRESSION: Limited exam due to overlying bowel gas and patient's body habitus. 1. Hepatomegaly and hepatic steatosis. 2. Post cholecystectomy changes. Common bile duct is obscured by overlying bowel gas. No intrahepatic biliary duct dilatation.
== END | disposition home or self-care (01) ==
LOC: RADUSWWP 07:16
PROVIDERS: ATTEND Family Medicine
DX: K76.0 Fatty (change of) liver, not elsewhere classified (principal); R16.0 Hepatomegaly, not elsewhere classified; Z90.49 Acquired absence of other specified parts of digestive tract
CPT/HCPCS: 76700

== ENCOUNTER 2024-06-25 21:32 | Emergency (ER) | payer BC, OTHER ==
[2024-06-25 21:39] VITALS: TEMP 98.6
[2024-06-25 22:18] LABS: Appearance,Urine Clear (Clear); Bacteria,Urine Rare /hpf; Bilirubin,Urine Negative (Negative); Blood,Urine Moderate (Negative); Color,Urine Yellow; Glucose,Urine (UA) Negative (Negative); Hyaline Casts,Urine 3 /lpf (0-2); Ketones,Urine Negative (Negative); Leukocyte Esterase,Urine Negative (Negative); Mucus,Urine Many /hpf; Nitrite,Urine Negative (Negative); PH, Urine 5.5 (5.0-8.0); Protein,Urine Trace (Negative); RBC,Urine 6 /hpf (0-5); Specific Gravity,Urine 1.031 (1.001-1.035); Squamous Epithelial Cell,Urine <1 /hpf (0-4); Urobilinogen,Urine <2.0 mg/dL (<2.0); WBC,Urine 1 /hpf (0-5)
[2024-06-25] MEDS: MORPHINE SULFATE 4 MG/ML SYRINGE IM STA (22:28)
--- NOTE | 2024-06-25 23:19 | ED ---
General Adult HPI - General Source: patient, RN notes reviewed, old records reviewed Mode of arrival: ambulatory Limitations: no limitations <Vern Eng - Last Filed: 06/26/24 00:18> <Luis A Orozco - Last Filed: 06/26/24 01:31> - General Chief complaint: Urogenital Stated complaint: Kidney stones - History of Present Illness Initial comments: Patient is a 43-year-old male who presents emergency department for evaluation for flank pain. Was diagnosed with bronchitis by an urgent care earlier today as well as presented to [facility] for evaluation for flank pain. Patient was transferred here via private vehicle due to concern for possible kidney stones due to the flank pain and their CT imaging machine being broken. Patient states he has been coughing, minimally productive cough. Does have a history of tobacco use. Was discharged home with antibiotics as well as an inhaler. He has not noticed any blood in his urine but they have noticed some bleeding in his urine at your urgent care. They wanted to obtain CT imaging however were unable to. Labs at outpatient facility unremarkable. Presents for further evaluation. Denies chest pain, shortness of breath currently, sore throat. Denies any fevers or chills or sick contacts. Presents for further evaluation at this time. (Vern Eng) - Related Data Home Medications Medication Instructions Recorded Confirmed Furosemide [Lasix] 40 mg PO BID PRN 12/27/22 12/27/22 Previous Rx's Medication Instructions Recorded Albuterol Inhaler [Ventolin Hfa 2 puff INHALATION Q4HR PRN #1 each 12/27/22 Inhaler] predniSONE [Deltasone] 20 mg PO BID #10 tab 12/27/22 predniSONE [Deltasone] 40 mg PO BID 5 Days #10 tab 06/26/24 Allergies Allergy/AdvReac Type Severity Reaction Status Date / Time No Known Allergies Allergy Verified 12/27/22 13:00 Review of Systems ROS Other: All systems not noted in ROS Statement are negative. <Vern Eng - Last Filed: 06/26/24 00:18> ROS Other: All systems not noted in ROS Statement are negative. <Luis A Orozco - Last Filed: 06/26/24 01:31> ROS Statement: Those systems with pertinent positive or pertinent negative responses have been documented in the HPI. Review of Systems: CONST: Denies fever EYES: Denies blurry vision ENT: Denies nasal congestion C/V: Denies Chest pain RESP: Denies shortness of breath GI: Endorses abdominal pain : Denies dysuria SKIN: Denies rash. MSK: Denies joint pain. NEURO: Denies headache (Vern Eng) Past Medical History Past Medical History: Pneumonia Additional Past Medical History / Comment(s): Bronchitis yearly, states restless leg, states taking lasix for edema in legs History of Any Multi-Drug Resistant Organisms: None Reported Past Surgical History: Cholecystectomy, Hernia Repair, Orthopedic Surgery Additional Past Surgical History / Comment(s): lt ankle cyst removed, umbilical hernia repair. Past Anesthesia/Blood Transfusion Reactions: No Reported Reaction Past Psychological History: No Psychological Hx Reported Smoking Status: Current every day smoker Past Alcohol Use History: Occasional Past Drug Use History: None Reported - Past Family History Mother Family Medical History: No Reported History Additional Family Medical History / Comment(s): Mother had lung problems. Father History Unknown: Yes <Vern Eng - Last Filed: 06/26/24 00:18> General Exam Limitations: no limitations <Vern Eng - Last Filed: 06/26/24 00:18> - General Exam Comments Initial Comments: General: Appears in no acute distress. HEAD: Normal with no signs of head trauma. EYES: EOMI ENT: Hearing grossly intact, normal oropharynx. RESPIRATORY: Clear breath sounds bilaterally. No wheezes, rales, or rhonchi. C/V: Regular rate and rhythm. S1 and S2 auscultated, no edema, peripheral pulses 2+ and intact throughout ABD: Abdomen soft, nondistended. Some tenderness to palpation of the abdominal wall and back in the mid lumbar spine region. No guarding or rebound tenderness. No peritoneal signs. EXT: Normal range of motion, no obvious deformity. No midline lumbar spine tenderness to palpation. SKIN: No rashes or lesions observed on exposed skin. NEURO: Alert and oriented x 4. (Vern Eng) Course Vital Signs 06/25/24 21:33 Temperature 98.6 F Pulse Rate 95 Respiratory 20 Rate Blood Pressure 117/89 O2 Sat by Pulse 95 Oximetry Medical Decision Making <Vern Eng - Last Filed: 06/26/24 00:18> - Medical Decision Making Was pt. sent in by a medical professional or institution (STEPHANIE Florez, BIOCHEMIST, urgent care, hospital, or correction...) When possible be specific @ -No Did you speak to anyone other than the patient for history (EMS, parent, family, police, friend...)? What history was obtained from this source @ -No Did you review nursing and triage notes (agree or disagree)? Why? @ -I reviewed and agree with nursing and triage notes Were old charts reviewed (outside hosp., previous admission, EMS record, old EKG, old radiological studies, urgent care reports/EKG's, correction records)? Report findings @ -Reviewed transferring paperwork from [facility] including the labs which were all within acceptable limits. No urinalysis performed at the hospital or documented urinalysis. Differential Diagnosis (chest pain, altered mental status, abdominal pain women, abdominal pain men, vaginal bleeding, weakness, fever, dyspnea, syncope, headache, dizziness, GI bleed, back pain, seizure, CVA, palpatations, mental health, musculoskeletal)? @ -Differential Abdominal Pain Men: Appendicitis, cholecystitis, diverticulosis, ischemic bowel, pancreatitis, hepatitis, UTI, gastroenteritis, AAA, incarcerated hernia, bowel obstruction, constipation, inflammatory bowel, hepatitis, peptic ulcer disease, splenic infarction, perforated viscus, testicular torsion, this is not meant to be an all-inclusive list EKG interpreted by me (3pts min.). @ -None done X-rays interpreted by me (1pt min.). @ -None done CT interpreted by me (1pt min.). @ -Pending U/S interpreted by me (1pt. min.). @ -None done What testing was considered but not performed or refused? (CT, X-rays, U/S, labs)? Why? @ -None What meds were considered but not given or refused? Why? @ -None Did you discuss the management of the patient with other professionals (professionals i.e. STEPHANIE Florez, BIOCHEMIST, lab, RT, psych nurse, adoption social worker, manager material, teacher, air intelligence officer, block and case maker)? Give summary @ -No Was smoking cessation discussed for >3mins.? @ -No Was critical care preformed (if so, how long)? @ -No Were there social determinants of health that impacted care today? How? (Homelessness, low income, unemployed, alcoholism, drug addiction, transportation, low edu. Level, literacy, decrease access to med. care, [facility], rehab)? @ -No Was there de-escalation of care discussed even if they declined (Discuss DNR or withdrawal of care, Hospice)? DNR status @ -No What co-morbidities impacted this encounter? (DM, HTN, Smoking, COPD, CAD, Cancer, CVA, ARF, Chemo, Hep., AIDS, mental health diagnosis, sleep apnea, morbid obesity)? @ -None Was patient admitted / discharged? Hospital course, mention meds given and route, prescriptions, significant lab abnormalities, going to OR and other pertinent info. @ -Patient presents emergency department complaining of abdominal pain and back pain. Sent here from another facility for CT imaging as they were unable to perform CT at that facility. Was transferred from [facility]. Unknown regarding urinalysis however patient's CBC and BMP within acceptable limits based on labs performed at other hospital earlier this evening. We will obtain a urinalysis to evaluate for bleeding to determine which type of CAT scan to obtain. Patient was in agreement this plan. He is given a dose of IM morphine. No further laboratory studies are needed as he just received labs a few hours ago and were within acceptable limits. Patient does have moderate blood in his urine. Therefore we will we will perform a CT without contrast and he was in agreement the plan. CT imaging still pending. I did send a prescription for prednisone for the patient's tracheobronchitis and COPD exacerbation as urgent care did not send this to his pharmacy. He is already on antibiotics as well as an inhaler. Patient signed out to Dr. Orozco pending results of CT imaging. Undiagnosed new problem with uncertain prognosis? @ -No Drug Therapy requiring intensive monitoring for toxicity (Heparin, Nitro, Insulin, Cardizem)? @ -No Were any procedures done? @ -No (Vern Eng) - Lab Data Lab Results 06/25/24 Range/Units 22:00 Urine Color Yellow Urine Appearance Clear (Clear) Urine pH 5.5 (5.0-8.0) Ur Specific [place] 1.031 (1.001-1.035) Urine Protein Trace H (Negative) Urine Glucose (UA) Negative (Negative) Urine Ketones Negative (Negative) Urine Blood Moderate H (Negative) Urine Nitrite Negative (Negative) Urine Bilirubin Negative (Negative) Urine Urobilinogen <2.0 (<2.0) mg/dL Ur Leukocyte Esterase Negative (Negative) Urine RBC 6 H (0-5) /hpf Urine WBC 1 (0-5) /hpf Ur Squamous Epith Cells <1 (0-4) /hpf Urine Bacteria Rare H (None) /hpf Hyaline Casts 3 H (0-2) /lpf Urine Mucus Many H (None) /hpf Disposition <Vern Eng - Last Filed: 06/26/24 00:18> Is patient prescribed a controlled substance at d/c from ED?: No Time of Disposition: 01:00 <Luis A Orozco - Last Filed: 06/26/24 01:31> Clinical Impression: Flank pain Disposition: HOME SELF-CARE Condition: Good Instructions (If sedation given, give patient instructions): Flank Pain (ED) Prescriptions: predniSONE [Deltasone] 40 mg PO BID 5 Days #10 tab Referrals: Colt Spicer MD [Primary Care Provider] - 1-2 days
--- NOTE | 2024-06-26 01:12 | CT ---
EXAM: CT Abdomen and Pelvis Without Intravenous Contrast CLINICAL HISTORY: ITS.REASON CT Reason: flank pain TECHNIQUE: Axial computed tomography images of the abdomen and pelvis without intravenous contrast. CTDI is 23.7 mGy and DLP is 1540.9 mGy-cm. This CT exam was performed using one or more of the following dose reduction techniques: automated exposure control, adjustment of the mA and/or kV according to patient size, and/or use of iterative reconstruction technique. COMPARISON: No relevant prior studies available. FINDINGS: Lung bases: Unremarkable. No mass. No consolidation. ABDOMEN: Liver: Unremarkable. Gallbladder and bile ducts: Cholecystectomy. No ductal dilation. Pancreas: Unremarkable. No ductal dilation. Spleen: Unremarkable. No splenomegaly. Adrenals: Unremarkable. No mass. Kidneys and ureters: Unremarkable. No hydronephrosis, nephrolithiasis, or obstructive uropathy. Stomach and bowel: Diverticulosis, without acute diverticulitis. No small bowel obstruction. No free intraperitoneal air. PELVIS: Appendix: No findings to suggest acute appendicitis. Bladder: Unremarkable. No stones. Reproductive: Unremarkable as visualized. ABDOMEN and PELVIS: Intraperitoneal space: Unremarkable. No free air. No significant fluid collection. Bones/joints: Bilateral pars defects at L5. No acute fracture. No dislocation. Soft tissues: Bilateral fat-containing inguinal hernias. Vasculature: Unremarkable. No abdominal aortic aneurysm. Lymph nodes: Unremarkable. No enlarged lymph nodes. IMPRESSION: 1. No hydronephrosis, nephrolithiasis, or obstructive uropathy. 2. Cholecystectomy. 3. Diverticulosis, without acute diverticulitis. No small bowel obstruction. No free intraperitoneal air.
[2024-06-26] MEDS: predniSONE 20 MG TAB PO STA (01:34)
[2024-06-26 01:39] VITALS: BP 145/89; PULSE 94; RESP 17
== END 2024-06-26 01:39 | disposition home or self-care (01) ==
LOC: EC 21:32
DX: R10.9 Unspecified abdominal pain (principal); F17.200 Nicotine dependence, unspecified, uncomplicated; Z90.49 Acquired absence of other specified parts of digestive tract
CPT/HCPCS: 81001; 74176; 99283; 96372; J2270